=== PATIENT | male | born 1975 | race Two or more races ===

== ENCOUNTER 2020-06-05 07:54 | Inpatient (IN) | payer OTHER ==
[~2020-06-05] VITALS: Ht 175.3 cm; Wt 77.6 kg
[2020-06-05] MEDS ORDERED: Octreotide Acetate 500 MCG in Sodium Chloride 499 ML IV SCH (08:15)
[2020-06-05] MEDS ORDERED: Pantoprazole Inj IV ONE (08:15)
--- NOTE | 2020-06-05 08:18 | Emergency Room Report ---
History of Present Illness General Chief Complaint: Abdominal Pain Source: Patient Present Illness HPI 44-year-old male with history of alcohol liver cirrhosis here with hematemesis and syncope. Patient says that this has happened to him before most recently about 10 days ago. He was admitted to [facility] where he had an endoscopy that showed that the patient's prior varices that he had approximately 14 years ago are no longer present. He was discharged 7 days ago. Says that over the past 24 hours he has vomited multiple times bright red blood. Also thinks that he is having hemoptysis. Said he had a syncopal episode last night. Denies head trauma. No fevers, chills, vision changes, focal numbness or weakness, slurred speech, chest pain, palpitation or shortness of breath, back pain, abdominal pain, diarrhea, dysuria. 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 COVID-19 Screening: Negative COVID-19 COVID-19 Testing Source: nasal Nursing Documentation-[facility] Past Medical History: No History, Except For Review of Systems All Other Systems: negative except mentioned in HPI Physical Exam Vital Signs Date Time Temp Pulse Resp B/P (MAP) Pulse Ox O2 Delivery O2 Flow Rate FiO2 06/05/20 07:57 97.7 117 20 135/82 (99) 98 Room Air Sp02 EP Interpretation: reviewed, normal General Appearance: no apparent distress, alert, non-toxic Head: normocephalic, atraumatic Eyes: bilateral eye normal inspection, bilateral eye PERRL ENT: hearing grossly normal, normal pharynx, no angioedema, normal voice Neck: full range of motion, supple/symm/no masses Respiratory: chest non-tender, lungs clear, normal breath sounds, speaking full sentences Cardiovascular #1: regular rate, rhythm, no edema Cardiovascular #2: 2+ carotid (R), 2+ carotid (L), 2+ radial (R), 2+ radial (L), 2+ dorsalis pedis (R), 2+ dorsalis pedis (L) Gastrointestinal: normal bowel sounds, non tender, soft, non-distended, no guarding, no rebound Rectal: deferred Genitourinary: normal inspection, no CVA tenderness Musculoskeletal: back normal, normal range of motion, gait/station normal, non- tender Neurologic: alert, motor strength/tone normal, oriented x3, sensory intact, responsive, speech normal Psychiatric: judgement/insight normal, memory normal, mood/affect normal, no suicidal/homicidal ideation Lymphatic: no adenopathy Medical Decision Making Diagnostic Impression: Primary Impression: GI bleed Additional Impressions: Syncope Abdominal pain ER Course EKG: NSR, no ischemia, intervals WNL. No ectopy Rhythm strip: patient monitored for arrhythmias - no malignant dysrhythmias, runs of PVCs, nor pauses noted Chest x-ray: No infiltrate/effusion. Mediastinum within normal limits. No consolidations. No free air under the diaphragm. No bony abnormalities Laboratory Tests Test 06/05/20 08:35 06/05/20 08:53 White Blood Count 9.0 K/UL (4.8-10.8) Red Blood Count 5.01 M/UL (4.70-6.10) Hemoglobin 16.6 G/DL (14.2-18.0) Hematocrit 48.1 % (42.0-52.0) Mean Corpuscular Volume 96 FL (80-99) Mean Corpuscular Hemoglobin 33.2 PG (27.0-31.0) H Mean Corpuscular Hemoglobin Concent 34.6 G/DL (32.0-36.0) Red Cell Distribution Width 13.8 % (11.6-14.8) Platelet Count 234 K/UL (150-450) Mean Platelet Volume 5.9 FL (6.5-10.1) L Neutrophils (%) (Auto) 68.1 % (45.0-75.0) Lymphocytes (%) (Auto) 20.6 % (20.0-45.0) Monocytes (%) (Auto) 8.8 % (1.0-10.0) Eosinophils (%) (Auto) 0.9 % (0.0-3.0) Basophils (%) (Auto) 1.6 % (0.0-2.0) Prothrombin Time 10.4 SEC (9.30-11.50) Prothrombin Time INR 0.9 (0.9-1.1) Activated Partial Thromboplast Time 25 SEC (23-33) Sodium Level 143 MMOL/L (136-145) Potassium Level 3.6 MMOL/L (3.5-5.1) Chloride Level 104 MMOL/L (98-107) Carbon Dioxide Level 22 MMOL/L (21-32) Anion Gap 17 mmol/L (5-15) H Blood Urea Nitrogen 13 mg/dL (7-18) Creatinine 0.8 MG/DL (0.55-1.30) Estimated Glomerular Filtration Rate > 60 mL/min (>60) Glucose Level 86 MG/DL (74-106) Calcium Level 8.6 MG/DL (8.5-10.1) Total Bilirubin 0.8 MG/DL (0.2-1.0) Aspartate Amino Transferase (AST) 57 U/L (15-37) H Alanine Aminotransferase (ALT) 27 U/L (12-78) Alkaline Phosphatase 94 U/L (46-116) Troponin I 0.002 ng/mL (0.000-0.056) Total Protein 8.0 G/DL (6.4-8.2) Albumin 4.1 G/DL (3.4-5.0) Globulin 3.9 g/dL Albumin/Globulin Ratio 1.1 (1.0-2.7) Lipase 444 U/L (73-393) H Urine Color Yellow Urine Appearance Clear Urine pH 5 (4.5-8.0) Urine Specific [place] 1.025 (1.005-1.035) Urine Protein 3+ (NEGATIVE) H Urine Glucose (UA) Negative (NEGATIVE) Urine Ketones 3+ (NEGATIVE) H Urine Blood 3+ (NEGATIVE) H Urine Nitrite Negative (NEGATIVE) Urine Bilirubin Negative (NEGATIVE) Urine Urobilinogen Normal MG/DL (0.0-1.0) Urine Leukocyte Esterase 1+ (NEGATIVE) H Urine RBC 0-2 /HPF (0 - 0) H Urine WBC 0-2 /HPF (0 - 0) Urine Squamous Epithelial Cells Occasional /LPF Urine Bacteria Occasional /HPF (NONE) Urine Mucus Moderate /LPF (NONE/OCC) H 44-year-old male with a history of alcoholic liver cirrhosis, remote history of esophageal varices status post banding 15 years ago, stomach ulcers here with hematemesis and syncope. Patient was hemodynamically stable in the emergency department and in no acute distress. He was mildly tachycardic on arrival but this resolved after IV fluids. CBC and CMP were largely unremarkable. He had a normal hemoglobin. Urinalysis negative. EKG normal. Chest x-ray normal. Patient was given Protonix, fluids, Rocephin in the emergency department. Patient said that he had an endoscopy performed approximately 1 week ago that showed that his varices have resolved. No indication for octreotide at this time. Patient to be admitted to telemetry. Last Vital Signs Date Time Temp Pulse Resp B/P (MAP) Pulse Ox O2 Delivery O2 Flow Rate FiO2 06/05/20 07:57 97.7 117 20 135/82 (99) 98 Room Air Cruzito Pierre M.D. Jun 05, 2020 08:18
--- NOTE | 2020-06-05 08:25 | NUR ---
ED Nurse Note: patient states he came from work at [employer] when he vomitted blood, had abdominal pain and passed out. c/o vomiting blood and epigastric pain, he had syncopal episode yesterday. nad noted on arrival, vss, complaints of 4/10 pain on mid abdomen stabbing pain. vss. a/ox4, ambulatory with steady gait. on room air, respirations even and unlabored.
--- NOTE | 2020-06-05 08:29 | NUR ---
ED Nurse Note: xray at bedside.
--- NOTE | 2020-06-05 08:48 | NUR ---
ED Nurse Note: iv started on left hand 20 gauge, blood collected and sent to lab Addendum: 06/05/20 at 0904 by TAMICA iv right hand 20 gauge
[2020-06-05] MEDS ORDERED: ZYPREXA5 MG ORAL (08:49)
[2020-06-05] MEDS ORDERED: SERTRALINE HCL100 MG PO (08:49)
[2020-06-05] MEDS ORDERED: QUETIAPINE FUM200 MG ORAL (08:49)
[2020-06-05 09:01] VITALS: BP 135/82
[2020-06-05 09:10] LABS: APPEARANCE,URINE CLEAR; BILIRUBIN, URINE NEGATIVE (NEGATIVE); GLUCOSE, URINE (UA) NEGATIVE (NEGATIVE); KETONES,URINE 3+ (NEGATIVE); LEUKOCYTE ESTERASE ,URINE 1+ (NEGATIVE); NITRITE,URINE NEGATIVE (NEGATIVE); PH,URINE 5 (4.5-8.0); PROTEIN,URINE 3+ (NEGATIVE); UROBILINOGEN,URINE NORMAL MG/DL (0.0-1.0)
[2020-06-05 09:11] LABS: BASOPHILS % (AUTO) 1.6 % (0.0-2.0); EOSINOPHILS % (AUTO) 0.9 % (0.0-3.0); HEMATOCRIT 48.1 % (42.0-52.0); HEMOGLOBIN 16.6 G/DL (14.2-18.0); LYMPHOCYTES % (AUTO) 20.6 % (20.0-45.0); MEAN CORPUSCULAR VOLUME 96 FL (80-99); MONOCYTES % (AUTO) 8.8 % (1.0-10.0); NEUTROPHILS % (AUTO) 68.1 % (45.0-75.0); PLATELET COUNT 234 K/UL (150-450); RED BLOOD COUNT 5.01 M/UL (4.70-6.10); RED CELL DISTRIBUTION WIDTH 13.8 % (11.6-14.8)
[2020-06-05 09:19] LABS: ANION GAP 17 mmol/L (5-15); BLOOD UREA NITROGEN 13 mg/dL (7-18); CALCIUM 8.6 MG/DL (8.5-10.1); CARBON DIOXIDE 22 MMOL/L (21-32); CHLORIDE 104 MMOL/L (98-107); CREATININE 0.8 MG/DL (0.55-1.30); POTASSIUM 3.6 MMOL/L (3.5-5.1); SODIUM 143 MMOL/L (136-145)
[2020-06-05 09:21] LABS: INR 0.9 (0.9-1.1)
[2020-06-05 09:23] LABS: ALANINE AMINOTRANSFERASE 27 U/L (12-78); ALBUMIN 4.1 G/DL (3.4-5.0); ALBUMIN/GLOBULIN RATIO 1.1 (1.0-2.7); ALKALINE PHOSPHATASE 94 U/L (46-116); ASPARTATE AMINO TRANSFERASE 57 U/L (15-37); BILIRUBIN,TOTAL 0.8 MG/DL (0.2-1.0)
[2020-06-05 09:25] LABS: COLOR,URINE YELLOW
[2020-06-05 09:46] VITALS: BP 118/71
[2020-06-05] MEDS ORDERED: Morphine Sulfate 4mg/ml Inj (IV USE ONLY) IVP ONE ×3 (10:00→17:00)
[2020-06-05] MEDS ORDERED: cefTRIAXone 1 GM in NS 55 ML IVPB ONE (10:45)
--- NOTE | 2020-06-05 12:01 | General Progress Note ---
Subjective ROS Limited/Unobtainable: Yes Allergies: Coded Allergies: IODINE (Verified Allergy, Unknown, 06/05/20) Objective Last 24 Hour Vital Signs Date Time Temp Pulse Resp B/P (MAP) Pulse Ox O2 Delivery O2 Flow Rate FiO2 06/05/20 10:41 97.7 06/05/20 09:46 97.7 108 20 118/71 98 Room Air 06/05/20 09:01 97.7 77 20 135/82 98 Room Air 06/05/20 09:01 117 20 Room Air 06/05/20 07:57 97.7 117 20 135/82 (99) 98 Room Air Laboratory Tests 06/05/20 08:35: White Blood Count 9.0, Red Blood Count 5.01, Hemoglobin 16.6, Hematocrit 48.1, Mean Corpuscular Volume 96, Mean Corpuscular Hemoglobin 33.2H, Mean Corpuscular Hemoglobin Concent 34.6, Red Cell Distribution Width 13.8, Platelet Count 234, Mean Platelet Volume 5.9L, Neutrophils (%) (Auto) 68.1, Lymphocytes (%) (Auto) 20.6, Monocytes (%) (Auto) 8.8, Eosinophils (%) (Auto) 0.9, Basophils (%) (Auto) 1.6, Prothrombin Time 10.4, Prothromb Time International Ratio 0.9, Activated Partial Thromboplast Time 25, Sodium Level 143, Potassium Level 3.6, Chloride Level 104, Carbon Dioxide Level 22, Anion Gap 17H, Blood Urea Nitrogen 13, Creatinine 0.8, Estimat Glomerular Filtration Rate > 60, Glucose Level 86, Calcium Level 8.6, Total Bilirubin 0.8, Aspartate Amino Transf (AST/SGOT) 57H, Alanine Aminotransferase (ALT/SGPT) 27, Alkaline Phosphatase 94, Troponin I 0.002, Total Protein 8.0, Albumin 4.1, Globulin 3.9, Albumin/Globulin Ratio 1.1, Lipase 444H 06/05/20 08:53: Urine Color Yellow, Urine Appearance Clear, Urine pH 5, Urine Specific [place] 1.025, Urine Protein 3+H, Urine Glucose (UA) Negative, Urine Ketones 3+H, Urine Blood 3+H, Urine Nitrite Negative, Urine Bilirubin Negative, Urine Urobilinogen Normal, Urine Leukocyte Esterase 1+H, Urine RBC 0-2H, Urine WBC 0-2, Urine Squamous Epithelial Cells Occasional, Urine Bacteria Occasional, Urine Mucus ModerateH Height (Feet): 5 Height (Inches): 11.00 Weight (Pounds): 172 General Appearance: no apparent distress EENT: normal ENT inspection Neck: supple Cardiovascular: normal rate Respiratory/Chest: decreased breath sounds Abdomen: normal bowel sounds, non tender, soft Extremities: non-tender Assessment/Plan Assessment/Plan: h/o cirrhosis ? GIB abd us ppi hepatitis panel repeat labs including amylase and lipase will fu Fabiano Holley MD Jun 05, 2020 12:01
[2020-06-05 12:03] VITALS: BP 122/76
--- NOTE | 2020-06-05 12:06 | NUR ---
ED Nurse Note: Water provided to patient. Dr Ignacio hale for patient to eat or drink at this time.
--- NOTE | 2020-06-05 14:24 | Diagnostic Imaging Report ---
Indication: Reason For Exam: COUGH Technique: Single AP view of the chest. Comparison: None. Findings: The cardiomediastinal silhouette is within normal limits. There is no focal consolidation, pneumothorax or pleural effusion. Osseous structures demonstrate no acute abnormality. IMPRESSION: No radiographic evidence of acute cardiopulmonary disease.
--- NOTE | 2020-06-05 14:36 | Cardiac Electrophysiology PN ---
Subjective Subjective [id number] Objective Last 24 Hour Vital Signs Date Time Temp Pulse Resp B/P (MAP) Pulse Ox O2 Delivery O2 Flow Rate FiO2 06/05/20 12:57 98.0 06/05/20 12:03 98.0 85 16 122/76 99 Room Air 06/05/20 10:41 97.7 06/05/20 09:46 97.7 108 20 118/71 98 Room Air 06/05/20 09:01 97.7 77 20 135/82 98 Room Air 06/05/20 09:01 117 20 Room Air 06/05/20 07:57 97.7 117 20 135/82 (99) 98 Room Air Laboratory Tests Test 06/05/20 08:35 06/05/20 08:53 White Blood Count 9.0 K/UL (4.8-10.8) Red Blood Count 5.01 M/UL (4.70-6.10) Hemoglobin 16.6 G/DL (14.2-18.0) Hematocrit 48.1 % (42.0-52.0) Mean Corpuscular Volume 96 FL (80-99) Mean Corpuscular Hemoglobin 33.2 PG (27.0-31.0) H Mean Corpuscular Hemoglobin Concent 34.6 G/DL (32.0-36.0) Red Cell Distribution Width 13.8 % (11.6-14.8) Platelet Count 234 K/UL (150-450) Mean Platelet Volume 5.9 FL (6.5-10.1) L Neutrophils (%) (Auto) 68.1 % (45.0-75.0) Lymphocytes (%) (Auto) 20.6 % (20.0-45.0) Monocytes (%) (Auto) 8.8 % (1.0-10.0) Eosinophils (%) (Auto) 0.9 % (0.0-3.0) Basophils (%) (Auto) 1.6 % (0.0-2.0) Prothrombin Time 10.4 SEC (9.30-11.50) Prothromb Time International Ratio 0.9 (0.9-1.1) Activated Partial Thromboplast Time 25 SEC (23-33) Sodium Level 143 MMOL/L (136-145) Potassium Level 3.6 MMOL/L (3.5-5.1) Chloride Level 104 MMOL/L (98-107) Carbon Dioxide Level 22 MMOL/L (21-32) Anion Gap 17 mmol/L (5-15) H Blood Urea Nitrogen 13 mg/dL (7-18) Creatinine 0.8 MG/DL (0.55-1.30) Estimat Glomerular Filtration Rate > 60 mL/min (>60) Glucose Level 86 MG/DL (74-106) Calcium Level 8.6 MG/DL (8.5-10.1) Total Bilirubin 0.8 MG/DL (0.2-1.0) Aspartate Amino Transf (AST/SGOT) 57 U/L (15-37) H Alanine Aminotransferase (ALT/SGPT) 27 U/L (12-78) Alkaline Phosphatase 94 U/L (46-116) Troponin I 0.002 ng/mL (0.000-0.056) Total Protein 8.0 G/DL (6.4-8.2) Albumin 4.1 G/DL (3.4-5.0) Globulin 3.9 g/dL Albumin/Globulin Ratio 1.1 (1.0-2.7) Lipase 444 U/L (73-393) H Urine Color Yellow Urine Appearance Clear Urine pH 5 (4.5-8.0) Urine Specific [place] 1.025 (1.005-1.035) Urine Protein 3+ (NEGATIVE) H Urine Glucose (UA) Negative (NEGATIVE) Urine Ketones 3+ (NEGATIVE) H Urine Blood 3+ (NEGATIVE) H Urine Nitrite Negative (NEGATIVE) Urine Bilirubin Negative (NEGATIVE) Urine Urobilinogen Normal MG/DL (0.0-1.0) Urine Leukocyte Esterase 1+ (NEGATIVE) H Urine RBC 0-2 /HPF (0 - 0) H Urine WBC 0-2 /HPF (0 - 0) Urine Squamous Epithelial Cells Occasional /LPF Urine Bacteria Occasional /HPF (NONE) Urine Mucus Moderate /LPF (NONE/OCC) H Carlos Duncan MD Jun 05, 2020 14:36
[2020-06-05 16:13] VITALS: BP 128/77
--- NOTE | 2020-06-05 16:33 | Diagnostic Imaging Report ---
ABDOMINAL ULTRASOUND - COMPLETE INDICATION: Abdominal pain. TECHNIQUE: Multiplanar ultrasound examination of the abdomen with greyscale and doppler imaging. COMPARISON: None FINDINGS: Liver: The liver is normal in size and demonstrates coarsened echotexture. No focal abnormalities are noted. Gallbladder: Surgically absent. Common bile duct: Common bile duct is dilated, measuring up to 9 mm. Pancreas: Incompletely imaged due to overlying bowel gas. There is a prominent pancreatic duct, measuring up to 3 mm. Kidneys: The kidneys are normal in size and echogenicity. There is no hydronephrosis. Spleen: The spleen is normal in size and echogenicity. Aorta: The aorta is normal in caliber. IMPRESSION: Dilated common bile duct, which in combination with prominent pancreatic duct, raises possibility of distal obstructive process such as choledocholithiasis or pancreatic head mass. Recommend correlation with LFTs and consider further evaluation with CT with contrast as clinically indicated.
--- NOTE | 2020-06-05 16:45 | NUR ---
ED Nurse Note: Dr Bruce was notified of lactic acid of 6.4
--- NOTE | 2020-06-05 18:05 | Consultation ---
DATE OF CONSULTATION: 06/05/2020 CARDIOLOGY CONSULTATION REASON FOR CONSULTATION: Syncope. HISTORY OF PRESENT ILLNESS: The patient is a 44-year-old alcoholic with history of cirrhosis, who presented to the emergency room with syncopal episodes. The patient also had hematemesis and was admitted to [facility] and had an endoscopy that showed the patient's prior varices were no longer present and was discharged a week ago. The patient has vomited multiple times with bright red blood. The patient states the last time he drank alcohol was 12 hours ago. He had a syncopal episode without any head trauma. Denies any chest pain or palpitation or shortness of breath. The blood pressure in the emergency room was 135/82 with a pulse of 117. Cardiology consultation was obtained for further evaluation. REVIEW OF SYSTEMS: Negative other than what is mentioned in history of present illness. PAST MEDICAL HISTORY: As mentioned above. FAMILY HISTORY: Noncontributory. SOCIAL HISTORY: He is a heavy alcoholic and does not use any drugs. PHYSICAL EXAMINATION: VITAL SIGNS: Blood pressure 122/76, pulse 110, respirations 18. He is afebrile. HEAD AND NECK: No JVD. LUNGS: Clear. CARDIOVASCULAR: Regular S1 and S2 and tachycardic. ABDOMEN: Soft. EXTREMITIES: No pitting edema. LABORATORY DATA: White count 9, hemoglobin of 16, hematocrit of 48, and platelet count is 234. Sodium 142, potassium 3.2, BUN of 13, creatinine 0.8, and glucose of 86. ASSESSMENT/PLAN: 1. Syncope, likely due to cirrhosis and GI bleed, could be vagal. First troponin is negative. Repeat cardiac enzymes. Get EKG and echocardiogram for further evaluation. 2. Upper GI bleed due to esophageal varices in view of the patient with cirrhosis of the liver. Hemoglobin is 16. Further evaluation by Dr. Holley. 3. Heavy alcohol use. Thank you very much for allowing me to participate in the care of this patient. Please do not hesitate to contact me for any questions regarding my evaluation. The case was discussed with the emergency room physician. Carlos Duncan M.D. DR: SHAWN JOB#: [id number] CC:
--- NOTE | 2020-06-05 18:20 | NUR ---
ED Nurse Note: Repeat lactic acid sent to lab.
[2020-06-05 19:03] VITALS: BP 109/58
--- NOTE | 2020-06-05 19:09 | NUR ---
HAND-OFF: Report given to minda aguilar.
[2020-06-05 19:10] VITALS: BP 112/64
--- NOTE | 2020-06-05 19:10 | NUR ---
ED Nurse Note: pt laying in bed with eyes open, pt is AAOx4, breathing even and unlabored. No complaints from pt at the moment. Vital signs are stable.
--- NOTE | 2020-06-05 20:01 | NUR ---
ED Nurse Note: Floor RN unable to take report.
--- NOTE | 2020-06-05 20:43 | NUR ---
ED Nurse Note: Report given to DARLENE Camacho in tele.
--- NOTE | 2020-06-05 20:50 | NUR ---
TRANSFER TO FLOOR: Patient transferred to tele via [facility] accompanied by EMT and staff submarine warfare officer. Per EDMD ok to transfer. Pt is AA0x4, with stable vital signs. Report given to DARLENE Camacho. Belongings and admission packet given to tele staff.
--- NOTE | 2020-06-05 21:18 | NUR ---
NURSE NOTES: Received report from DARLENE Oro. Pt is A/O x4 and verbally responsive. Pt is ambulatory and continent or both bowel and bladder. Pain noted in the ABD at 4/10. Pt coming to tele from Er with syncope episode and GI bleed. Educated pt to let me know if anything changes and he has any hematemesis like earlier in the day. Bed in lowest position with side rails x2 and locked. Paged Dr. Thakur for admitting orders awaiting call back.
[2020-06-06] VITALS: BP 113/70
--- NOTE | 2020-06-06 | NUR ---
NURSE NOTES: Was told by Dr. Thakur to contact Dr. Holley for orders for pain medication for pain of 6/10 in his ABD. Contacted Dr. Holley and awaiting response.
--- NOTE | 2020-06-06 00:36 | NUR ---
NURSE NOTES: Received admit orders from Dr. Thakur which were carried out.
--- NOTE | 2020-06-06 01:34 | NUR ---
NURSE NOTES: Contacted Dr. Holley's voicemail service a second time for pt pain level of 8/10 on his lower left ABD. Charge nurse also aware.
--- NOTE | 2020-06-06 01:52 | NUR ---
NURSE NOTES: Contacted Dr. Thakur regarding pain medication for pt because pain has gone up from 12/03 to 02/[address] Holley has not answered back. Also notified charge nurse.
[2020-06-06 04:00] VITALS: BP 124/75
--- NOTE | 2020-06-06 04:16 | NUR ---
NURSE NOTES: Again tried to contact Dr. Thakur for pain medications for the pt. Pt pain is 9/10 on lower ABD. Charge nurse notified.
[2020-06-06 06:59] LABS: BASOPHILS % (AUTO) 1.5 % (0.0-2.0); EOSINOPHILS % (AUTO) 2.2 % (0.0-3.0); HEMATOCRIT 40.5 % (42.0-52.0); HEMOGLOBIN 14.1 G/DL (14.2-18.0); LYMPHOCYTES % (AUTO) 11.3 % (20.0-45.0); MEAN CORPUSCULAR VOLUME 98 FL (80-99); MONOCYTES % (AUTO) 9.6 % (1.0-10.0); NEUTROPHILS % (AUTO) 75.5 % (45.0-75.0); PLATELET COUNT 184 K/UL (150-450); RED BLOOD COUNT 4.15 M/UL (4.70-6.10); RED CELL DISTRIBUTION WIDTH 13.8 % (11.6-14.8); WHITE BLOOD COUNT 8.4 K/UL (4.8-10.8)
[2020-06-06 07:14] LABS: INR 0.9 (0.9-1.1)
[2020-06-06 07:23] LABS: ALANINE AMINOTRANSFERASE 52 U/L (12-78); ALBUMIN 3.3 G/DL (3.4-5.0); ALKALINE PHOSPHATASE 97 U/L (46-116); ANION GAP 13 mmol/L (5-15); ASPARTATE AMINO TRANSFERASE 232 U/L (15-37); BILIRUBIN,TOTAL 1.6 MG/DL (0.2-1.0); BLOOD UREA NITROGEN 7 mg/dL (7-18); CALCIUM 7.8 MG/DL (8.5-10.1); CARBON DIOXIDE 24 MMOL/L (21-32); CHLORIDE 100 MMOL/L (98-107); CREATININE 0.9 MG/DL (0.55-1.30); POTASSIUM 4.1 MMOL/L (3.5-5.1); SODIUM 137 MMOL/L (136-145)
[2020-06-06 07:26] LABS: AMYLASE 86 U/L (25-115)
[2020-06-06 07:27] LABS: BILIRUBIN,DIRECT 0.4 MG/DL (0.0-0.3)
--- NOTE | 2020-06-06 07:55 | NUR ---
NURSE NOTES: Pt. received from DARLENE Camacho. Pt. AAOx4, on room air, breathing even and unlabored, no indication of respiratory distress, active complaints of epigastric pain, 10/10, N/V moderate amount. Endorsed MD was called requesting pain medication, no orders received, will follow up. Bed low and locked, side rails x2 up, and call light in reach.
--- NOTE | 2020-06-06 07:58 | NUR ---
NURSE HAND-OFF REPORT: Important Events on Shift: New Admit with ABD pain and syncope episode Patient Status: Stable Diet: NPO Pending Orders: Pending Results/Labs: Pending MD notification: Latest Vital Signs: Temperature 98.2 , Pulse 87 , B/P 124 /75 , Respiratory Rate 20 , O2 SAT 97 , Room Air, O2 Flow Rate . Vital Sign Comment: EKG Rhythm: Sinus Rhythm Rhythm change?: N MD Notified?: - MD Response: Latest Tompkins Fall Score: 45 Fall Risk: High Risk Safety Measures: Call light Within Reach, Bed Alarm Zone 2, Side Rails Side Rails x2, Bed position . Fall Precautions: Report given to
[2020-06-06 08:00] VITALS: BP 129/77
--- NOTE | 2020-06-06 08:57 | General Progress Note ---
Subjective ROS Limited/Unobtainable: Yes Allergies: Coded Allergies: IODINE (Verified Allergy, Unknown, 06/05/20) Objective Last 24 Hour Vital Signs Date Time Temp Pulse Resp B/P (MAP) Pulse Ox O2 Delivery O2 Flow Rate FiO2 06/06/20 04:00 87 06/06/20 04:00 98.2 84 20 124/75 (91) 97 06/06/20 00:00 99.0 73 20 113/70 (84) 97 06/05/20 21:17 Room Air 06/05/20 21:10 79 06/05/20 20:50 98.8 79 18 116/61 100 Room Air 06/05/20 19:10 98.0 75 16 112/64 99 Room Air 06/05/20 19:03 98.0 72 16 109/58 99 Room Air 06/05/20 17:30 98.0 06/05/20 16:13 98.0 84 16 128/77 99 Room Air 06/05/20 12:57 98.0 06/05/20 12:03 98.0 85 16 122/76 99 Room Air 06/05/20 10:41 97.7 06/05/20 09:46 97.7 108 20 118/71 98 Room Air 06/05/20 09:01 97.7 77 20 135/82 98 Room Air 06/05/20 09:01 117 20 Room Air Intake and Output0 06/05/20 06/06/20 19:00 07:00 Intake Total 1055 ml Output Total 100 ml Balance 1055 ml -100 ml Intake Oral 0 ml IV Total 1055 ml Output Emesis 100 ml # Voids 1 2 Laboratory Tests 06/05/20 15:30: Lactic Acid Level 6.40H 06/05/20 15:50: Ammonia 47H 06/05/20 18:12: Lactic Acid Level 6.00H 06/06/20 05:45: White Blood Count 8.4, Red Blood Count 4.15L, Hemoglobin 14.1L, Hematocrit 40.5L , Mean Corpuscular Volume 98, Mean Corpuscular Hemoglobin 34.0H, Mean Corpuscular Hemoglobin Concent 34.9, Red Cell Distribution Width 13.8, Platelet Count 184, Mean Platelet Volume 6.3L, Neutrophils (%) (Auto) 75.5H, Lymphocytes (%) (Auto) 11.3L, Monocytes (%) (Auto) 9.6, Eosinophils (%) (Auto) 2.2, Basophils (%) (Auto) 1.5, Prothrombin Time 10.0, Prothromb Time International Ratio 0.9, Activated Partial Thromboplast Time 26, Sodium Level 137, Potassium Level 4.1, Chloride Level 100, Carbon Dioxide Level 24, Anion Gap 13, Blood Urea Nitrogen 7, Creatinine 0.9, Estimat Glomerular Filtration Rate > 60, Glucose Level 78, Calcium Level 7.8L, Total Bilirubin 1.6H, Direct Bilirubin 0.4H, Aspartate Amino Transf (AST/SGOT) 232H, Alanine Aminotransferase (ALT/SGPT) 52, Alkaline Phosphatase 97, Troponin I 0.009, Total Protein 6.6, Albumin 3.3L, Globulin 3.3, Albumin/Globulin Ratio 1.0, Amylase Level 86, Lipase 358, Hepatitis A IgM Antibody [Pending], Hepatitis B Surface Antigen [Pending], Hepatitis B Core IgM Antibody [Pending], Hepatitis C Antibody [Pending] Height (Feet): 5 Height (Inches): 9.00 Weight (Pounds): 171 General Appearance: no apparent distress EENT: normal ENT inspection Neck: supple Cardiovascular: normal rate Respiratory/Chest: decreased breath sounds Abdomen: normal bowel sounds, non tender, soft Extremities: non-tender Assessment/Plan Assessment/Plan: h/o cirrhosis ? GIB abd us ppi hepatitis panel repeat labs including amylase and lipase will fu pain control start Fabiano Torres MD Jun 06, 2020 08:57
[2020-06-06] MEDS: Morphine Sulfate 2mg/ml Inj(IV/IM USE ONLY) IVP PRN ×3 (09:09→17:19)
--- NOTE | 2020-06-06 10:31 | NUR ---
NURSE NOTES: Message left for Dr. Montilla regarding consult for pain. Pt. still experiencing 10/10 epigastric pain, non radiating, with tears, tensing, and N/V.
[2020-06-06 12:00] VITALS: BP 119/76
--- NOTE | 2020-06-06 12:28 | NUR ---
NURSE NOTES: Message left for Jr Pylealexxrolando regarding pain consult from Dr. Thakur. Awaiting return call and orders.
--- NOTE | 2020-06-06 14:50 | NUR ---
CASE MANAGEMENT:REVIEW PRESENTED TO ER CC; VOMITING BLOOD . EPIGASTRIC PAIN. SYNCOPAL EPISODE SI: GIB. SYNCOPE 97.7 117 20 135/82 98% ON RA H/H 16.6/48.1 LIPASE+444 IS: IV ZOFRAN IV PROTONIX IV ROCEPHIN IV MORPHINE 1L NS BOLUS IV FLAGYL OCTREOTIDE GTT : TO TELEMETRY DCP:
--- NOTE | 2020-06-06 15:24 | NUR ---
NURSE NOTES: Discussed pt.'s complaints of pain, epigastric, unrelieved from current pain interventions. No new orders received and instructed to follow up with Dr. Montilla consult.
[2020-06-06] MEDS ORDERED: 1/2 NS 1000ml IV ONE (15:34)
--- NOTE | 2020-06-06 15:38 | Cardiac Electrophysiology PN ---
Assessment/Plan Assessment/Plan 1. Syncope, likely due to cirrhosis and GI bleed, could be vagal. Ruled out for KS and Echocardiogram showed EF 65% 2. Upper GI bleed due to esophageal varices in view of the patient with cirrhosis of the liver. Hemoglobin is 16 dropped to 14. Further evaluation by Dr. Holley. 3. Heavy alcohol use. Subjective Subjective Vomited blood again today. Say has hX of esophageal varices with banding in 2005 Objective Last 24 Hour Vital Signs Date Time Temp Pulse Resp B/P (MAP) Pulse Ox O2 Delivery O2 Flow Rate FiO2 06/06/20 12:00 68 06/06/20 12:00 98.8 68 18 119/76 (90) 96 06/06/20 09:00 Room Air 06/06/20 08:00 98.8 85 22 129/77 (94) 98 06/06/20 08:00 85 06/06/20 04:00 87 06/06/20 04:00 98.2 84 20 124/75 (91) 97 06/06/20 00:00 99.0 73 20 113/70 (84) 97 06/05/20 21:17 Room Air 06/05/20 21:10 79 06/05/20 20:50 98.8 79 18 116/61 100 Room Air 06/05/20 19:10 98.0 75 16 112/64 99 Room Air 06/05/20 19:03 98.0 72 16 109/58 99 Room Air 06/05/20 17:30 98.0 06/05/20 16:13 98.0 84 16 128/77 99 Room Air Intake and Output 06/05/20 06/06/20 19:00 07:00 Intake Total 1055 ml Output Total 100 ml Balance 1055 ml -100 ml Intake Oral 0 ml IV Total 1055 ml Output Emesis 100 ml # Voids 1 2 Laboratory Tests Test 06/05/20 15:50 06/05/20 18:12 06/06/20 05:45 Ammonia 47 umol/L (11-32) H Lactic Acid Level 6.00 mmol/L (0.66-2.22) H White Blood Count 8.4 K/UL (4.8-10.8) Red Blood Count 4.15 M/UL (4.70-6.10) L Hemoglobin 14.1 G/DL (14.2-18.0) L Hematocrit 40.5 % (42.0-52.0) L Mean Corpuscular Volume 98 FL (80-99) Mean Corpuscular Hemoglobin 34.0 PG (27.0-31.0) H Mean Corpuscular Hemoglobin Concent 34.9 G/DL (32.0-36.0) Red Cell Distribution Width 13.8 % (11.6-14.8) Platelet Count 184 K/UL (150-450) Mean Platelet Volume 6.3 FL (6.5-10.1) L Neutrophils (%) (Auto) 75.5 % (45.0-75.0) H Lymphocytes (%) (Auto) 11.3 % (20.0-45.0) L Monocytes (%) (Auto) 9.6 % (1.0-10.0) Eosinophils (%) (Auto) 2.2 % (0.0-3.0) Basophils (%) (Auto) 1.5 % (0.0-2.0) Prothrombin Time 10.0 SEC (9.30-11.50) Prothromb Time International Ratio 0.9 (0.9-1.1) Activated Partial Thromboplast Time 26 SEC (23-33) Sodium Level 137 MMOL/L (136-145) Potassium Level 4.1 MMOL/L (3.5-5.1) Chloride Level 100 MMOL/L (98-107) Carbon Dioxide Level 24 MMOL/L (21-32) Anion Gap 13 mmol/L (5-15) Blood Urea Nitrogen 7 mg/dL (7-18) Creatinine 0.9 MG/DL (0.55-1.30) Estimat Glomerular Filtration Rate > 60 mL/min (>60) Glucose Level 78 MG/DL (74-106) Calcium Level 7.8 MG/DL (8.5-10.1) L Total Bilirubin 1.6 MG/DL (0.2-1.0) H Direct Bilirubin 0.4 MG/DL (0.0-0.3) H Aspartate Amino Transf (AST/SGOT) 232 U/L (15-37) H Alanine Aminotransferase (ALT/SGPT) 52 U/L (12-78) Alkaline Phosphatase 97 U/L (46-116) Troponin I 0.009 ng/mL (0.000-0.056) Total Protein 6.6 G/DL (6.4-8.2) Albumin 3.3 G/DL (3.4-5.0) L Globulin 3.3 g/dL Albumin/Globulin Ratio 1.0 (1.0-2.7) Amylase Level 86 U/L (25-115) Lipase 358 U/L (73-393) Hepatitis A IgM Antibody Pending Hepatitis B Surface Antigen Pending Hepatitis B Core IgM Antibody Pending Hepatitis C Antibody Pending Objective HEAD AND NECK: No JVD. LUNGS: Clear. CARDIOVASCULAR: Regular S1 and S2 and tachycardic. ABDOMEN: Soft. EXTREMITIES: No pitting edema. Carlos Duncan MD Jun 06, 2020 15:38
[2020-06-06 16:00] VITALS: BP 124/76
--- NOTE | 2020-06-06 17:52 | Consultation ---
History of Present Illness General Date patient seen: Jun 06, 2020 Reason for Hospitalization: Abdominal Pain Present Illness HPI 44-year-old male with history of alcohol liver cirrhosis here with hematemesis and syncope. Patient says that this has happened to him before most recently about 10 days ago. He was admitted to [facility] where he had an endoscopy that showed that the patient's prior varices that he had approximately 14 years ago are no longer present. He was discharged 7 days ago. Says that over the past 24 hours he has vomited multiple times bright red blood. Also thinks that he is having hemoptysis. Said he had a syncopal episode last night. Denies head trauma. No fevers, chills, vision changes, focal numbness or weakness, slurred speech, chest pain, palpitation or shortness of breath, back pain, abdominal pain, diarrhea, dysuria. surgery called to evaluate for abd pain. Allergies: Coded Allergies: IODINE (Verified Allergy, Unknown, 06/05/20) COVID-19 Screening Contact w/high risk pt: No Experienced COVID-19 symptoms?: No Medication History Scheduled Olanzapine* (Zyprexa*), 5 MG ORAL DAILY, (Reported) Quetiapine Fumarate* (Seroquel*), 200 MG ORAL DAILY, (Reported) Sertraline Hcl* (Zoloft*), 100 MG PO DAILY, (Reported) Patient History History Provided By: Patient, Medical Record, PMD Healthcare decision maker Resuscitation status Advanced Directive on File Past Medical/Surgical History Past Medical/Surgical History: (1) Syncope (2) Abdominal pain (3) GI bleed Review of Systems Review of Symptoms General ROS: no weight loss or fever Psychological ROS: no depression or mood changes, no memory loss Ophthalmic ROS: no visual changes or eye irritation ENT ROS: no nasal congestion, hearing loss, dizziness Allergy and Immunology ROS: no allergic symptoms or urticaria Hematological and Lymphatic ROS: no swollen glands, unusual bleeding or bruising Endocrine ROS: no polyuria, polydipsia, weight changes, temperature intolerance Respiratory ROS: no cough, shortness of breath, or wheezing Cardiovascular ROS: no chest pain or dyspnea on exertion Gastrointestinal ROS: denies abdominal pain, bright red blood in stool. Musculoskeletal ROS: no myalgias or arthralgias Neurological ROS: no TIA or stroke symptoms Dermatological ROS: no new or changing skin lesions, rashes or pruritis Physical Exam Physical Exam General appearance: alert, cooperative, no distress, appears stated age Head: Normocephalic, without obvious abnormality, atraumatic Eyes: conjunctivae/corneas clear. PERRL, EOM's intact. Fundi benign Throat: Lips, mucosa, and tongue normal. Teeth and gums normal Neck: supple, symmetrical, trachea midline, no adenopathy, thyroid: not enlarged, symmetric, no tenderness/mass/nodules, no carotid bruit and no JVD Lungs: clear to auscultation bilaterally Heart: regular rate and rhythm, S1, S2 normal, no murmur, click, rub or gallop Abdomen: soft, non-tender. Bowel sounds normal. No masses, no organomegaly Extremities: extremities normal, atraumatic, no cyanosis or edema Pulses: 2+ and symmetric Skin: Skin color, texture, turgor normal. No rashes or lesions Neurologic: Grossly normal Last 24 Hour Vital Signs Date Time Temp Pulse Resp B/P (MAP) Pulse Ox O2 Delivery O2 Flow Rate FiO2 06/06/20 16:00 98.2 67 20 124/76 (92) 99 06/06/20 12:00 68 06/06/20 12:00 98.8 68 18 119/76 (90) 96 06/06/20 09:00 Room Air 06/06/20 08:00 98.8 85 22 129/77 (94) 98 06/06/20 08:00 85 06/06/20 04:00 87 06/06/20 04:00 98.2 84 20 124/75 (91) 97 06/06/20 00:00 99.0 73 20 113/70 (84) 97 06/05/20 21:17 Room Air 06/05/20 21:10 79 06/05/20 20:50 98.8 79 18 116/61 100 Room Air 06/05/20 19:10 98.0 75 16 112/64 99 Room Air 06/05/20 19:03 98.0 72 16 109/58 99 Room Air Intake and Output 06/05/20 06/06/20 19:00 07:00 Intake Total 1055 ml Output Total 100 ml Balance 1055 ml -100 ml Intake Oral 0 ml IV Total 1055 ml Output Emesis 100 ml # Voids 1 2 Laboratory Tests Test 06/05/20 18:12 06/06/20 05:45 Lactic Acid Level 6.00 mmol/L (0.66-2.22) H White Blood Count 8.4 K/UL (4.8-10.8) Red Blood Count 4.15 M/UL (4.70-6.10) L Hemoglobin 14.1 G/DL (14.2-18.0) L Hematocrit 40.5 % (42.0-52.0) L Mean Corpuscular Volume 98 FL (80-99) Mean Corpuscular Hemoglobin 34.0 PG (27.0-31.0) H Mean Corpuscular Hemoglobin Concent 34.9 G/DL (32.0-36.0) Red Cell Distribution Width 13.8 % (11.6-14.8) Platelet Count 184 K/UL (150-450) Mean Platelet Volume 6.3 FL (6.5-10.1) L Neutrophils (%) (Auto) 75.5 % (45.0-75.0) H Lymphocytes (%) (Auto) 11.3 % (20.0-45.0) L Monocytes (%) (Auto) 9.6 % (1.0-10.0) Eosinophils (%) (Auto) 2.2 % (0.0-3.0) Basophils (%) (Auto) 1.5 % (0.0-2.0) Prothrombin Time 10.0 SEC (9.30-11.50) Prothromb Time International Ratio 0.9 (0.9-1.1) Activated Partial Thromboplast Time 26 SEC (23-33) Sodium Level 137 MMOL/L (136-145) Potassium Level 4.1 MMOL/L (3.5-5.1) Chloride Level 100 MMOL/L (98-107) Carbon Dioxide Level 24 MMOL/L (21-32) Anion Gap 13 mmol/L (5-15) Blood Urea Nitrogen 7 mg/dL (7-18) Creatinine 0.9 MG/DL (0.55-1.30) Estimat Glomerular Filtration Rate > 60 mL/min (>60) Glucose Level 78 MG/DL (74-106) Calcium Level 7.8 MG/DL (8.5-10.1) L Total Bilirubin 1.6 MG/DL (0.2-1.0) H Direct Bilirubin 0.4 MG/DL (0.0-0.3) H Aspartate Amino Transf (AST/SGOT) 232 U/L (15-37) H Alanine Aminotransferase (ALT/SGPT) 52 U/L (12-78) Alkaline Phosphatase 97 U/L (46-116) Troponin I 0.009 ng/mL (0.000-0.056) Total Protein 6.6 G/DL (6.4-8.2) Albumin 3.3 G/DL (3.4-5.0) L Globulin 3.3 g/dL Albumin/Globulin Ratio 1.0 (1.0-2.7) Amylase Level 86 U/L (25-115) Lipase 358 U/L (73-393) Hepatitis A IgM Antibody Pending Hepatitis B Surface Antigen Pending Hepatitis B Core IgM Antibody Pending Hepatitis C Antibody Pending Height (Feet): 5 Height (Inches): 9.00 Weight (Pounds): 171 Medications Current Medications Medications (Trade) Dose Ordered Sig/Avi Route PRN Reason Start Time Stop Time Status Last Admin Dose Admin Barium Sulfate (Readi-Cat 2) 450 ml NOW PRN ORAL Radiology Procedure 06/06/20 09:00 06/08/20 08:59 Morphine Sulfate (Morphine Sulfate) 2 mg Q4H PRN IVP For Pain 06/06/20 09:00 06/13/20 08:59 06/06/20 17:19 Ondansetron HCl (Zofran) 4 mg Q6H PRN IVP Nausea & Vomiting 06/05/20 22:15 07/05/20 22:14 06/06/20 16:21 Pantoprazole (Protonix) 40 mg DAILY ORAL 06/06/20 09:00 07/06/20 08:59 Sodium Chloride 1,000 ml @ 55 mls/hr [id number] IV 06/05/20 22:15 07/05/20 22:14 06/06/20 16:22 Assessment/Plan Problem List: (1) Syncope ICD Codes: R55 - Syncope and collapse SNOMED: 976102368 (2) Abdominal pain Assessment & Plan: 44M acute pancreatitis hx of chronic pancreatitis with heavy etoh abuse states last drink a few days ago pain 10?10 and asking for morphine and Dilaudid by name no n/v/f/c tolerating diet labs improved no acute surgical intervention gi input appreciated will follow with recs thank you ICD Codes: R10.9 - Unspecified abdominal pain SNOMED: 18217375 (3) GI bleed ICD Codes: K92.2 - Gastrointestinal hemorrhage, unspecified SNOMED: 44693179 Vincenzo Jim Jun 06, 2020 17:52
--- NOTE | 2020-06-06 18:58 | NUR ---
NURSE NOTES: Orders received from PARMJIT Nicole, morphine to be d/c'd and dilauded added. Orders entered.
--- NOTE | 2020-06-06 19:17 | NUR ---
NURSE HAND-OFF REPORT: Important Events on Shift:[Pt. with dark bloody emesis, Dr. Holley, Dr. Duncan, and Dr. Thakur aware, new pain interventions ordered per Corey PARNELL Patient Status: []asleep Diet: []liquid diet Pending Orders: []na Pending Results/Labs:[]na Pending MD notification:[]notify MD Holley for hematemsis Latest Vital Signs: Temperature 98.2 , Pulse 73 , B/P 124 /76 , Respiratory Rate 20 , O2 SAT 99 , Room Air, O2 Flow Rate . Vital Sign Comment: []stable EKG Rhythm: Sinus Rhythm Rhythm change?: N MD Notified?: - MD Response: Latest Tompkins Fall Score: 45 Fall Risk: High Risk Safety Measures: Call light Within Reach, Bed Alarm Zone 2, Side Rails Side Rails x2, Bed position Low and Locked. Fall Precautions: Yellow Socks Patient Fall Education Report given to []DARLENE Acevedo
--- NOTE | 2020-06-06 19:30 | NUR ---
NURSE NOTES: Received report from DARLENE Greene, pt. in bed awake, A/O X's4- able to make needs known, no signs or symptoms of acute cardiac or respiratory distress noted, bed alarm on, side rails up x's 3 and safety brakes engaged, call light within easy reach, pt. aware to ask for assist, pt. appears to be sating well on room air- no distress noted, aspiration precautions observed, pt. has urinal at bedside and within easy reach, pt. appears clean and dry, Rt. hand 20G IV running 1/2 NS at 55cc/hr- IV intact and patent, safety measures continued, will continue to monitor pt. and with plan of care.
[2020-06-06 20:00] VITALS: BP 123/81
[2020-06-06] MEDS: Hydromorphone 0.5mg/0.5ml inj IVP PRN (20:03)
--- NOTE | 2020-06-06 20:35 | NUR ---
NURSE NOTES: pt. states he feels al ot better with Dilaudid pain medication- no abdominal pain at the moment- will continue to monitor pt. and with plan of care.
--- NOTE | 2020-06-06 22:43 | NUR ---
NURSE NOTES: DR. Guzman, calling for patient new orders- room number and patient name verified- orders given over the phone-orders re-verified and carried out.
[2020-06-06] MEDS ORDERED: LORazepam 1mg tab ORAL PRN (22:45)
--- NOTE | 2020-06-06 23:30 | History and Physical Report ---
DATE OF ADMISSION: 06/05/2020 HISTORY OF PRESENT ILLNESS: The patient comes in because of severe abdominal pain and syncope, hematemesis for 2 days. The patient has a history of heavy drinking. The patient basically also complains of mild headache. Denies constipation. He has history of cirrhosis as well. Denies shortness of breath. Denies coughing. PAST MEDICAL HISTORY: Significant for cirrhosis of the liver due to alcohol abuse. The patient also could have depression and psychosis as well. He has history of peptic ulcer disease. PAST SURGICAL HISTORY: Cholecystectomy, left ankle surgery, and status post esophageal banding. ALLERGIES: Iodine. MEDICATIONS: Zyprexa and Zoloft. SOCIAL HISTORY: He has history of smoking, history of drug abuse, and history of alcohol abuse. FAMILY HISTORY: Noncontributory. REVIEW OF SYSTEMS: He has mild symptoms of headache x1 day. Denies change in vision pattern.CHEST: Denies shortness of breath. Denies cough. CARDIOVASCULAR: Denies chest pain. Denies orthopnea. GASTROINTESTINAL: Reports hematemesis and abdominal pain for about 2 days. EXTREMITIES: Denies pain in lower extremities. NEUROLOGIC: Denies change in speech pattern. PHYSICAL EXAMINATION: VITAL SIGNS: Temperature is 98.8, pulse is 85, and blood pressure 139/77. HEENT: PERRLA. NECK: Supple. No lymphadenopathy. CHEST: Clear to auscultation. CARDIOVASCULAR: Regular rate and rhythm. No murmurs or extra sounds. GASTROINTESTINAL: Epigastric tenderness. He has no rebound. ABDOMEN: Soft. Positive bowel sounds. No organomegaly. EXTREMITIES: No edema. Moves all 4 extremities. NEUROLOGIC: Sensory intact to light touch. Reflexes in both sides. Moves all 4 extremities. LABORATORY DATA: WBC of 9, hemoglobin 16.6, platelets 234,000. Sodium 137, potassium 4.4, BUN of 7, creatinine 0.9, glucose of 78. AST of 232, ALT of 52, total bilirubin of 1.6. ASSESSMENT AND PLAN: Abdominal pain, syncope, hematemesis, cirrhosis of the liver due to alcohol basically, psychosis, and depression. I have consulted Dr. Guzman, Dr. Montilla, Dr. Shalom Hardy, Dr. Duncan, Dr. Brad Mayers, and Dr. Holley to help with the above-mentioned abnormalities, abnormal symptoms, abnormal findings, and abnormal laboratories and endoscopy is pending with Dr. Holley. Dr. Tsang has been consulted to help with prevention of DT as well as for depression and psychosis treatment. Dayne Thakur M.D. DR: LESIA JOB#: [id number] CC:
[2020-06-07] VITALS (7 sets, daily range): BP systolic 103–132; BP diastolic 62–95
[2020-06-07] MEDS: Hydromorphone 0.5mg/0.5ml inj IVP PRN ×4 (05:54→18:08)
[2020-06-07] MEDS ORDERED: chlordiazePOXIDE 5mg Cap ORAL SCH (06:00)
[2020-06-07] MEDS ORDERED: chlordiazePOXIDE 25mg Cap ONE (06:10)
[2020-06-07] MEDS: chlordiazePOXIDE 25mg Cap ORAL SCH ×3 (06:27→22:56)
--- NOTE | 2020-06-07 07:15 | NUR ---
NURSE HAND-OFF REPORT: Important Events on Shift:none Patient Status: stable Diet: liquid diet Pending Orders: Pending Results/Labs: Pending MD notification: Latest Vital Signs: Temperature 97.9 , Pulse 71 , B/P 124 /81 , Respiratory Rate 20 , O2 SAT 98 , Room Air, O2 Flow Rate . Vital Sign Comment: EKG Rhythm: Sinus Rhythm Rhythm change?: N MD Notified?: N - MD Response: Latest Tompkins Fall Score: 45 Fall Risk: High Risk Safety Measures: Call light Within Reach, Bed Alarm Zone 2, Side Rails Side Rails x2, Bed position Low and Locked. Fall Precautions: Yellow Socks Patient Fall Education Report given to Wes, RN, pt. remains stable and no signs of distress noted. aware to f/u on any abnormal am labs.
--- NOTE | 2020-06-07 07:17 | NUR ---
NURSE NOTES: Patient seen in bed in low fowlers position with no acute signs of distress and was on his phone. The patient is on room air and was infusing fluids at 55cc/hr. The patient had no complaints of pain. The bed was in the lowest position, locked, side rails x2, and call light within reach.
[2020-06-07] MEDS: Thiamine 100mg tab ORAL SCH (08:10)
[2020-06-07 09:44] LABS: BASOPHILS % (AUTO) 1.3 % (0.0-2.0); EOSINOPHILS % (AUTO) 7.2 % (0.0-3.0); HEMATOCRIT 41.2 % (42.0-52.0); HEMOGLOBIN 14.8 G/DL (14.2-18.0); LYMPHOCYTES % (AUTO) 17.2 % (20.0-45.0); MEAN CORPUSCULAR VOLUME 95 FL (80-99); MONOCYTES % (AUTO) 13.6 % (1.0-10.0); NEUTROPHILS % (AUTO) 60.7 % (45.0-75.0); PLATELET COUNT 156 K/UL (150-450); RED BLOOD COUNT 4.32 M/UL (4.70-6.10); RED CELL DISTRIBUTION WIDTH 13.5 % (11.6-14.8); WHITE BLOOD COUNT 4.8 K/UL (4.8-10.8)
[2020-06-07 10:19] LABS: ALANINE AMINOTRANSFERASE 43 U/L (12-78); ALBUMIN 3.4 G/DL (3.4-5.0); ALBUMIN/GLOBULIN RATIO 0.9 (1.0-2.7); ALKALINE PHOSPHATASE 91 U/L (46-116); AMYLASE 79 U/L (25-115); ANION GAP 11 mmol/L (5-15); ASPARTATE AMINO TRANSFERASE 103 U/L (15-37); BILIRUBIN,TOTAL 1.8 MG/DL (0.2-1.0); BLOOD UREA NITROGEN 5 mg/dL (7-18); CALCIUM 8.7 MG/DL (8.5-10.1); CARBON DIOXIDE 28 MMOL/L (21-32); CHLORIDE 96 MMOL/L (98-107); CREATININE 0.9 MG/DL (0.55-1.30); POTASSIUM 3.7 MMOL/L (3.5-5.1); SODIUM 135 MMOL/L (136-145)
[2020-06-07 10:21] LABS: BILIRUBIN,DIRECT 0.5 MG/DL (0.0-0.3)
--- NOTE | 2020-06-07 10:27 | NUR ---
NURSE NOTES: Patient had an episode of 3 mL blood sputum that was expectorated at 1010. Contacted Dr. Roberts and made aware of episode.
--- NOTE | 2020-06-07 10:41 | General Progress Note ---
Subjective ROS Limited/Unobtainable: Yes Allergies: Coded Allergies: IODINE (Verified Allergy, Unknown, 06/05/20) Objective Last 24 Hour Vital Signs Date Time Temp Pulse Resp B/P (MAP) Pulse Ox O2 Delivery O2 Flow Rate FiO2 06/07/20 09:00 Room Air 06/07/20 08:00 61 06/07/20 08:00 98.1 62 18 117/68 (84) 96 06/07/20 06:24 97.9 06/07/20 05:54 71 20 124/81 (95) 98 06/07/20 04:02 75 06/07/20 04:00 97.9 61 20 103/62 (76) 99 06/07/20 00:00 98.0 63 20 120/64 (82) 99 06/06/20 23:53 104 06/06/20 21:00 Room Air 06/06/20 20:33 98.7 06/06/20 20:08 61 06/06/20 20:00 98.4 68 20 123/81 (95) 98 06/06/20 17:49 98.2 06/06/20 16:00 98.2 67 20 124/76 (92) 99 06/06/20 16:00 73 06/06/20 12:00 68 06/06/20 12:00 98.8 68 18 119/76 (90) 96 Intake and Output 06/06/20 06/07/20 19:00 07:00 Intake Total 1110 ml 385 ml Output Total 300 ml 1125 ml Balance 810 ml -740 ml IV Total 1110 ml 385 ml Output Urine Total 1125 ml Emesis 300 ml # Voids 4 3 Laboratory Tests 06/07/20 07:27: White Blood Count 4.8, Red Blood Count 4.32L, Hemoglobin 14.8, Hematocrit 41.2L, Mean Corpuscular Volume 95, Mean Corpuscular Hemoglobin 34.2H, Mean Corpuscular Hemoglobin Concent 35.8, Red Cell Distribution Width 13.5, Platelet Count 156, Mean Platelet Volume 7.0, Neutrophils (%) (Auto) 60.7, Lymphocytes (%) (Auto) 17.2L, Monocytes (%) (Auto) 13.6H, Eosinophils (%) (Auto) 7.2H, Basophils (%) (Auto) 1.3, Sodium Level 135L, Potassium Level 3.7, Chloride Level 96L, Carbon Dioxide Level 28, Anion Gap 11, Blood Urea Nitrogen 5L, Creatinine 0.9, Estimat Glomerular Filtration Rate > 60, Glucose Level 80, Calcium Level 8.7, Total Bilirubin 1.8H, Direct Bilirubin 0.5H, Aspartate Amino Transf (AST/SGOT) 103H, Alanine Aminotransferase (ALT/SGPT) 43, Alkaline Phosphatase 91, Total Protein 7.1, Albumin 3.4, Globulin 3.7, Albumin/Globulin Ratio 0.9L, Amylase Level 79, Lipase 344 Height (Feet): 5 Height (Inches): 9.00 Weight (Pounds): 171 General Appearance: no apparent distress EENT: normal ENT inspection Neck: normal alignment, supple, normal inspection Cardiovascular: normal rate Respiratory/Chest: lungs clear Abdomen: hypoactive bowel sounds Extremities: non-tender Assessment/Plan Assessment/Plan: h/o cirrhosis ? GIB abd us>>reviewed pending MRCP ppi hepatitis panel repeat labs including amylase and lipase will fu pain control advance diet Fabiano Holley MD Jun 07, 2020 10:41
--- NOTE | 2020-06-07 10:59 | Surgery Progress Note ---
Surgery Progress Note Subjective Additional Comments pending mrcp no n/v labs noted lip florence wnl t bili elevated Objective Last 24 Hour Vital Signs Date Time Temp Pulse Resp B/P (MAP) Pulse Ox O2 Delivery O2 Flow Rate FiO2 06/07/20 09:00 Room Air 06/07/20 08:00 61 06/07/20 08:00 98.1 62 18 117/68 (84) 96 06/07/20 06:24 97.9 06/07/20 05:54 71 20 124/81 (95) 98 06/07/20 04:02 75 06/07/20 04:00 97.9 61 20 103/62 (76) 99 06/07/20 00:00 98.0 63 20 120/64 (82) 99 06/06/20 23:53 104 06/06/20 21:00 Room Air 06/06/20 20:33 98.7 06/06/20 20:08 61 06/06/20 20:00 98.4 68 20 123/81 (95) 98 06/06/20 17:49 98.2 06/06/20 16:00 98.2 67 20 124/76 (92) 99 06/06/20 16:00 73 06/06/20 12:00 68 06/06/20 12:00 98.8 68 18 119/76 (90) 96 I&O Intake and Output 06/06/20 06/07/20 19:00 07:00 Intake Total 1110 ml 385 ml Output Total 300 ml 1125 ml Balance 810 ml -740 ml IV Total 1110 ml 385 ml Output Urine Total 1125 ml Emesis 300 ml # Voids 4 3 Wound: clean Cardiovascular: RSR Respiratory: decreased breath sounds Abdomen: soft, flat, non-tender, present bowel sounds, non-distended Extremities: no edema, no tenderness, no cyanosis Laboratory Tests Test 06/07/20 07:27 White Blood Count 4.8 K/UL (4.8-10.8) Red Blood Count 4.32 M/UL (4.70-6.10) L Hemoglobin 14.8 G/DL (14.2-18.0) Hematocrit 41.2 % (42.0-52.0) L Mean Corpuscular Volume 95 FL (80-99) Mean Corpuscular Hemoglobin 34.2 PG (27.0-31.0) H Mean Corpuscular Hemoglobin Concent 35.8 G/DL (32.0-36.0) Red Cell Distribution Width 13.5 % (11.6-14.8) Platelet Count 156 K/UL (150-450) Mean Platelet Volume 7.0 FL (6.5-10.1) Neutrophils (%) (Auto) 60.7 % (45.0-75.0) Lymphocytes (%) (Auto) 17.2 % (20.0-45.0) L Monocytes (%) (Auto) 13.6 % (1.0-10.0) H Eosinophils (%) (Auto) 7.2 % (0.0-3.0) H Basophils (%) (Auto) 1.3 % (0.0-2.0) Sodium Level 135 MMOL/L (136-145) L Potassium Level 3.7 MMOL/L (3.5-5.1) Chloride Level 96 MMOL/L (98-107) L Carbon Dioxide Level 28 MMOL/L (21-32) Anion Gap 11 mmol/L (5-15) Blood Urea Nitrogen 5 mg/dL (7-18) L Creatinine 0.9 MG/DL (0.55-1.30) Estimat Glomerular Filtration Rate > 60 mL/min (>60) Glucose Level 80 MG/DL (74-106) Calcium Level 8.7 MG/DL (8.5-10.1) Total Bilirubin 1.8 MG/DL (0.2-1.0) H Direct Bilirubin 0.5 MG/DL (0.0-0.3) H Aspartate Amino Transf (AST/SGOT) 103 U/L (15-37) H Alanine Aminotransferase (ALT/SGPT) 43 U/L (12-78) Alkaline Phosphatase 91 U/L (46-116) Total Protein 7.1 G/DL (6.4-8.2) Albumin 3.4 G/DL (3.4-5.0) Globulin 3.7 g/dL Albumin/Globulin Ratio 0.9 (1.0-2.7) L Amylase Level 79 U/L (25-115) Lipase 344 U/L (73-393) Plan Problems: (1) Syncope (2) Abdominal pain Assessment & Plan: 44M acute pancreatitis hx of chronic pancreatitis with heavy etoh abuse states last drink a few days ago pain 10?10 and asking for morphine and Dilaudid by name no n/v/f/c tolerating diet labs improved no acute surgical intervention gi input appreciated will follow with recs thank you (3) GI Vincenzo Chun Jun 07, 2020 10:59
--- NOTE | 2020-06-07 12:05 | NUR ---
NURSE NOTES: Patient has order for SCDs as DVT prophylaxis; patient refuses SCDs and states' " no, I dont want them", Patient is ambulatory, alert and oriented x4.
--- NOTE | 2020-06-07 13:11 | Consultation ---
History of Present Illness General Date patient seen: Jun 07, 2020 Chief Complaint: Abdominal Pain Present Illness Allergies: Coded Allergies: IODINE (Verified Allergy, Unknown, 06/05/20) Medication History Scheduled Olanzapine* (Zyprexa*), 5 MG ORAL DAILY, (Reported) Quetiapine Fumarate* (Seroquel*), 200 MG ORAL DAILY, (Reported) Sertraline Hcl* (Zoloft*), 100 MG PO DAILY, (Reported) Patient History Healthcare decision maker Resuscitation status Advanced Directive on File Physical Exam Last 24 Hour Vital Signs Date Time Temp Pulse Resp B/P (MAP) Pulse Ox O2 Delivery O2 Flow Rate FiO2 06/07/20 12:00 98.1 79 18 132/95 (107) 96 06/07/20 09:00 Room Air 06/07/20 08:00 61 06/07/20 08:00 98.1 62 18 117/68 (84) 96 06/07/20 06:24 97.9 06/07/20 05:54 71 20 124/81 (95) 98 06/07/20 04:02 75 06/07/20 04:00 97.9 61 20 103/62 (76) 99 06/07/20 00:00 98.0 63 20 120/64 (82) 99 06/06/20 23:53 104 06/06/20 21:00 Room Air 06/06/20 20:33 98.7 06/06/20 20:08 61 06/06/20 20:00 98.4 68 20 123/81 (95) 98 06/06/20 17:49 98.2 06/06/20 16:00 98.2 67 20 124/76 (92) 99 06/06/20 16:00 73 Intake and Output 06/06/20 06/07/20 19:00 07:00 Intake Total 1110 ml 385 ml Output Total 300 ml 1125 ml Balance 810 ml -740 ml IV Total 1110 ml 385 ml Output Urine Total 1125 ml Emesis 300 ml # Voids 4 3 Laboratory Tests Test 06/07/20 07:27 White Blood Count 4.8 K/UL (4.8-10.8) Red Blood Count 4.32 M/UL (4.70-6.10) L Hemoglobin 14.8 G/DL (14.2-18.0) Hematocrit 41.2 % (42.0-52.0) L Mean Corpuscular Volume 95 FL (80-99) Mean Corpuscular Hemoglobin 34.2 PG (27.0-31.0) H Mean Corpuscular Hemoglobin Concent 35.8 G/DL (32.0-36.0) Red Cell Distribution Width 13.5 % (11.6-14.8) Platelet Count 156 K/UL (150-450) Mean Platelet Volume 7.0 FL (6.5-10.1) Neutrophils (%) (Auto) 60.7 % (45.0-75.0) Lymphocytes (%) (Auto) 17.2 % (20.0-45.0) L Monocytes (%) (Auto) 13.6 % (1.0-10.0) H Eosinophils (%) (Auto) 7.2 % (0.0-3.0) H Basophils (%) (Auto) 1.3 % (0.0-2.0) Sodium Level 135 MMOL/L (136-145) L Potassium Level 3.7 MMOL/L (3.5-5.1) Chloride Level 96 MMOL/L (98-107) L Carbon Dioxide Level 28 MMOL/L (21-32) Anion Gap 11 mmol/L (5-15) Blood Urea Nitrogen 5 mg/dL (7-18) L Creatinine 0.9 MG/DL (0.55-1.30) Estimat Glomerular Filtration Rate > 60 mL/min (>60) Glucose Level 80 MG/DL (74-106) Calcium Level 8.7 MG/DL (8.5-10.1) Total Bilirubin 1.8 MG/DL (0.2-1.0) H Direct Bilirubin 0.5 MG/DL (0.0-0.3) H Aspartate Amino Transf (AST/SGOT) 103 U/L (15-37) H Alanine Aminotransferase (ALT/SGPT) 43 U/L (12-78) Alkaline Phosphatase 91 U/L (46-116) Total Protein 7.1 G/DL (6.4-8.2) Albumin 3.4 G/DL (3.4-5.0) Globulin 3.7 g/dL Albumin/Globulin Ratio 0.9 (1.0-2.7) L Amylase Level 79 U/L (25-115) Lipase 344 U/L (73-393) Height (Feet): 5 Height (Inches): 9.00 Weight (Pounds): 171 Medications Current Medications Medications (Trade) Dose Ordered Sig/Avi Route PRN Reason Start Time Stop Time Status Last Admin Dose Admin Barium Sulfate (Readi-Cat 2) 450 ml NOW PRN ORAL Radiology Procedure 06/06/20 09:00 06/08/20 08:59 Chlordiazepoxide (Librium) 25 mg Q8HR ORAL 06/07/20 06:30 06/14/20 06:29 06/07/20 06:27 Folic Acid (Folate) 1 mg DAILY ORAL 06/07/20 09:00 07/07/20 08:59 06/07/20 08:09 Hydromorphone HCl (Dilaudid) 0.5 mg Q4H PRN IVP Severe Pain (Pain Scale 7-10) 06/06/20 19:00 06/13/20 18:59 06/07/20 09:58 Lorazepam (Ativan) 2 mg Q4HR PRN ORAL For Anxiety 06/06/20 22:45 06/13/20 22:44 Ondansetron HCl (Zofran) 4 mg Q6H PRN IVP Nausea & Vomiting 06/05/20 22:15 07/05/20 22:14 06/06/20 16:21 Pantoprazole (Protonix) 40 mg DAILY ORAL 06/06/20 09:00 07/06/20 08:59 06/07/20 08:10 Sodium Chloride 1,000 ml @ 55 mls/hr [id number] IV 06/05/20 22:15 07/05/20 22:14 06/07/20 10:33 Thiamine HCl (Vitamin B1) 100 mg DAILY ORAL 06/07/20 09:00 07/07/20 08:59 06/07/20 08:10 Assessment/Plan Assessment/Plan: (1) Abdominal pain (2) Liver cirrhosis seen dictated Aamir Nicole Jun 07, 2020 13:11
--- NOTE | 2020-06-07 15:11 | NUR ---
CASE MANAGEMENT:REVIEW 06/07/20 SI: SYNCOPE. GIB 98.1 79 18 132/95 96% ON RA NA-135 TBILI+1.8 DBILI+0.5 AST+103 IS: IVF@55/HR FOLATE PO QD THIAMINE PO QD LIBRIUM PO Q8HRS IV DILAUDID Q4HRS PRN PLAN: START LOW FAT DIET PENDING MRCP
--- NOTE | 2020-06-07 15:12 | Cardiac Electrophysiology PN ---
Assessment/Plan Assessment/Plan 1. Syncope, likely due to cirrhosis and GI bleed, could be vagal. Ruled out for [place] and Echocardiogram showed EF 65% 2. Upper GI bleed due to esophageal varices in view of the patient with cirrhosis of the liver. Hemoglobin is [address] abdomen and MRCP pending by Dr. Holley. 3. Heavy alcohol use. Subjective Subjective Vomited blood again yesterday. Say has hX of esophageal varices with banding in [address] abdomen and MRCP tomorrow Objective Last 24 Hour Vital Signs Date Time Temp Pulse Resp B/P (MAP) Pulse Ox O2 Delivery O2 Flow Rate FiO2 06/07/20 14:15 67 06/07/20 12:00 98.1 79 18 132/95 (107) 96 06/07/20 09:00 Room Air 06/07/20 08:00 61 06/07/20 08:00 98.1 62 18 117/68 (84) 96 06/07/20 06:24 97.9 06/07/20 05:54 71 20 124/81 (95) 98 06/07/20 04:02 75 06/07/20 04:00 97.9 61 20 103/62 (76) 99 06/07/20 00:00 98.0 63 20 120/64 (82) 99 06/06/20 23:53 104 06/06/20 21:00 Room Air 06/06/20 20:33 98.7 06/06/20 20:08 61 06/06/20 20:00 98.4 68 20 123/81 (95) 98 06/06/20 17:49 98.2 06/06/20 16:00 98.2 67 20 124/76 (92) 99 06/06/20 16:00 73 Intake and Output 06/06/20 06/07/20 19:00 07:00 Intake Total 1110 ml 385 ml Output Total 300 ml 1125 ml Balance 810 ml -740 ml IV Total 1110 ml 385 ml Output Urine Total 1125 ml Emesis 300 ml # Voids 4 3 Laboratory Tests Test 06/07/20 07:27 White Blood Count 4.8 K/UL (4.8-10.8) Red Blood Count 4.32 M/UL (4.70-6.10) L Hemoglobin 14.8 G/DL (14.2-18.0) Hematocrit 41.2 % (42.0-52.0) L Mean Corpuscular Volume 95 FL (80-99) Mean Corpuscular Hemoglobin 34.2 PG (27.0-31.0) H Mean Corpuscular Hemoglobin Concent 35.8 G/DL (32.0-36.0) Red Cell Distribution Width 13.5 % (11.6-14.8) Platelet Count 156 K/UL (150-450) Mean Platelet Volume 7.0 FL (6.5-10.1) Neutrophils (%) (Auto) 60.7 % (45.0-75.0) Lymphocytes (%) (Auto) 17.2 % (20.0-45.0) L Monocytes (%) (Auto) 13.6 % (1.0-10.0) H Eosinophils (%) (Auto) 7.2 % (0.0-3.0) H Basophils (%) (Auto) 1.3 % (0.0-2.0) Sodium Level 135 MMOL/L (136-145) L Potassium Level 3.7 MMOL/L (3.5-5.1) Chloride Level 96 MMOL/L (98-107) L Carbon Dioxide Level 28 MMOL/L (21-32) Anion Gap 11 mmol/L (5-15) Blood Urea Nitrogen 5 mg/dL (7-18) L Creatinine 0.9 MG/DL (0.55-1.30) Estimat Glomerular Filtration Rate > 60 mL/min (>60) Glucose Level 80 MG/DL (74-106) Calcium Level 8.7 MG/DL (8.5-10.1) Total Bilirubin 1.8 MG/DL (0.2-1.0) H Direct Bilirubin 0.5 MG/DL (0.0-0.3) H Aspartate Amino Transf (AST/SGOT) 103 U/L (15-37) H Alanine Aminotransferase (ALT/SGPT) 43 U/L (12-78) Alkaline Phosphatase 91 U/L (46-116) Total Protein 7.1 G/DL (6.4-8.2) Albumin 3.4 G/DL (3.4-5.0) Globulin 3.7 g/dL Albumin/Globulin Ratio 0.9 (1.0-2.7) L Amylase Level 79 U/L (25-115) Lipase 344 U/L (73-393) Objective HEAD AND NECK: No JVD. LUNGS: Clear. CARDIOVASCULAR: Regular S1 and S2 and tachycardic. ABDOMEN: Soft. EXTREMITIES: No pitting edema. Carlos Duncan MD Jun 07, 2020 15:12
--- NOTE | 2020-06-07 19:13 | NUR ---
NURSE HAND-OFF REPORT: Important Events on Shift:[Resheduled CT abd/pelvis, 2 episodes of bloody expectorants] Patient Status: [Stable, AAO x4] Diet: [Low Fat Diet] Pending Orders: [N/A] Pending Results/Labs:[N/A] Pending MD notification:[N/A] Latest Vital Signs: Temperature 98.9 , Pulse 63 , B/P 118 /78 , Respiratory Rate 17 , O2 SAT 99 , Room Air, O2 Flow Rate . Vital Sign Comment: [] EKG Rhythm: Sinus Rhythm Rhythm change?: N MD Notified?: N - MD Response: Latest Tompkins Fall Score: 45 Fall Risk: High Risk Safety Measures: Call light Within Reach, Bed Alarm Zone 2, Side Rails Side Rails x2, Bed position Low and Locked. Fall Precautions: Yellow Socks Patient Fall Education Report given to [DARLENE Ramos].
--- NOTE | 2020-06-07 19:30 | NUR ---
NURSE NOTES: Received report from True Soto RN. Pt in stable condition, denies any pain or discomfort at this time. Will continue plan of care and close monitoring.
--- NOTE | 2020-06-07 22:10 | General Progress Note ---
Subjective ROS Limited/Unobtainable: Yes Allergies: Coded Allergies: IODINE (Verified Allergy, Unknown, 06/05/20) Objective Last 24 Hour Vital Signs Date Time Temp Pulse Resp B/P (MAP) Pulse Ox O2 Delivery O2 Flow Rate FiO2 06/07/20 16:00 63 06/07/20 16:00 98.9 65 17 118/78 (91) 99 06/07/20 14:15 67 06/07/20 12:00 98.1 79 18 132/95 (107) 96 06/07/20 09:00 Room Air 06/07/20 08:00 61 06/07/20 08:00 98.1 62 18 117/68 (84) 96 06/07/20 06:24 97.9 06/07/20 05:54 71 20 124/81 (95) 98 06/07/20 04:02 75 06/07/20 04:00 97.9 61 20 103/62 (76) 99 06/07/20 00:00 98.0 63 20 120/64 (82) 99 06/06/20 23:53 104 Intake and Output 06/06/20 06/07/20 19:00 07:00 Intake Total 1110 ml 385 ml Output Total 300 ml 1125 ml Balance 810 ml -740 ml IV Total 1110 ml 385 ml Output Urine Total 1125 ml Emesis 300 ml # Voids 4 3 Laboratory Tests 06/07/20 07:27: White Blood Count 4.8, Red Blood Count 4.32L, Hemoglobin 14.8, Hematocrit 41.2L, Mean Corpuscular Volume 95, Mean Corpuscular Hemoglobin 34.2H, Mean Corpuscular Hemoglobin Concent 35.8, Red Cell Distribution Width 13.5, Platelet Count 156, Mean Platelet Volume 7.0, Neutrophils (%) (Auto) 60.7, Lymphocytes (%) (Auto) 17.2L, Monocytes (%) (Auto) 13.6H, Eosinophils (%) (Auto) 7.2H, Basophils (%) (Auto) 1.3, Sodium Level 135L, Potassium Level 3.7, Chloride Level 96L, Carbon Dioxide Level 28, Anion Gap 11, Blood Urea Nitrogen 5L, Creatinine 0.9, Estimat Glomerular Filtration Rate > 60, Glucose Level 80, Calcium Level 8.7, Total Bilirubin 1.8H, Direct Bilirubin 0.5H, Aspartate Amino Transf (AST/SGOT) 103H, Alanine Aminotransferase (ALT/SGPT) 43, Alkaline Phosphatase 91, Total Protein 7.1, Albumin 3.4, Globulin 3.7, Albumin/Globulin Ratio 0.9L, Amylase Level 79, Lipase 344 Height (Feet): 5 Height (Inches): 9.00 Weight (Pounds): 171 Assessment/Plan Status: progressing Assessment/Plan: monitor for gi bleeding afebrile etoh cirrhosis check h/h no dt h/o drug abuse endoscopy per gi dr reviewed labs Dayne Thakur MD Jun 07, 2020 22:10
[2020-06-08] VITALS: BP 115/73
--- NOTE | 2020-06-08 01:02 | Consultation ---
DATE OF CONSULTATION: 06/07/2020 PAIN MANAGEMENT CONSULTATION CONSULTING PHYSICIAN: Darren Montilla MD REFERRING PHYSICIAN: Dayne Thakur MD PHYSICIAN OUT OF TOWN COLLECTION CLERK: PARMJIT Mcknight CHIEF COMPLAINT: Abdominal pain. HISTORY OF PRESENT ILLNESS: This is a 44-year-old male who has been seen on the telemetry floor of for initial pain management consultation. The patient was admitted under the care of Dr. Thakur due to GI bleed. The patient is seen by cytogeneticist at this time, having abdominal pain since October, worse in the past three days. It is constant acute pain, rating of 8/10, describing the pain as throbbing and aching pain. Movement makes it worse and is reduced with medication. He was started on Dilaudid 0.5 mg IV every 4 hours as needed for severe pain, which the patient reports has been adequately relieving pain to a tolerable level. We were consulted so the patient would have adequate pain control while here in the hospital. PAST MEDICAL HISTORY: Liver cirrhosis, depression, and peptic ulcer disease. PAST SURGICAL HISTORY: Cholecystectomy, left ankle surgery, and status post esophageal banding. SOCIAL HISTORY: Smoker of tobacco and alcohol abuse. Denies IV drug abuse. ALLERGIES: Iodine. MEDICATIONS: Zyprexa, Seroquel, and Zoloft. REVIEW OF SYSTEMS: Denies rash, fever, chills, sweating, dizziness, drowsiness, blurred vision, sore throat, or change in weight. No shortness of breath or chest pain. No nausea, vomiting, diarrhea, or blood in the stool or urine. No dysuria. PHYSICAL EXAMINATION: GENERAL: Alert, awake, and oriented. VITAL SIGNS: Blood pressure 132/95, heart rate 79, oxygen saturation 96%, respiratory rate 18, and temperature 98.1 degrees Fahrenheit. HEENT: PERRLA. NECK: Range of motion is full in all directions. No tenderness to paracervical muscles. No adenopathy. LUNGS: Decreased breath sounds bilaterally. HEART: S1 and S2, regular. ABDOMEN: There is tenderness to palpation BACK: Range of motion is decreased in flexion and extension. EXTREMITIES: Upper and lower extremity range of motion is decreased due to the patient's condition. No cyanosis. No clubbing. Sensory is intact. Reflexes are not obtainable. No adenopathy. ASSESSMENT AND PLAN: The patient is a 44-year-old male with abdominal pain and liver cirrhosis. The patient will be continued on Dilaudid as needed. No prescription opioid medication for discharge as per the patient's request. We recommend the patient be seen by psychiatrist as per electrical fitter. The patient was discussed with Dr. Montilla and Dr. Montilla concurred. We will follow the patient. Thank you very much for the courtesy of this consultation. Darren Montilla M.D. PARMJIT Mcknight DR: Ginger JOB#: [id number] CC:
[2020-06-08 04:00] VITALS: BP 119/83
[2020-06-08] MEDS: Hydromorphone 0.5mg/0.5ml inj IVP PRN ×5 (04:48→18:22)
[2020-06-08] MEDS: chlordiazePOXIDE 25mg Cap ORAL SCH ×3 (06:34→21:36)
--- NOTE | 2020-06-08 07:22 | NUR ---
NURSE NOTES: Received report from DARLENE Guzman. Pt is sleeping supine in bed. Pt awoken at this time, AOx4, verbalized understanding of NPO for diagnostic of MRCP and CT of pelvis today. pt is stable on RA, even and unlabored breathing. Pt is stable, no s/s or complaint of distress at this time. pt R wrist 20g running 1/2 NS at 75cc, asymptomatic and intact. Pt bed low and locked, call light in reach, and bed alarm on. Pt verbalized understanding to call for help.
--- NOTE | 2020-06-08 07:51 | NUR ---
NURSE HAND-OFF REPORT: Important Events on Shift: None Patient Status: stable Diet: NPO Pending Orders: colonoscopy, EGD Pending Results/Labs: cbc Pending MD notification: none Latest Vital Signs: Temperature 98.5 , Pulse 83 , B/P 119 /83 , Respiratory Rate 18 , O2 SAT 98 , Room Air, O2 Flow Rate . Vital Sign Comment: EKG Rhythm: Sinus Rhythm Rhythm change?: N MD Notified?: N - MD Response: Latest Tompkins Fall Score: 45 Fall Risk: High Risk Safety Measures: Call light Within Reach, Bed Alarm Zone 2, Side Rails Side Rails x2, Bed position Low and Locked. Fall Precautions: Yellow Socks Patient Fall Education Report given to Radha Saldana RN
[2020-06-08 08:00] VITALS: BP 132/85
--- NOTE | 2020-06-08 08:00 | NUR ---
NURSE NOTES: Pt is off tele tigre Qiu. pt stable and verbalizes understanding of diagnostic.
[2020-06-08 08:32] LABS: BASOPHILS % (AUTO) 1.4 % (0.0-2.0); HEMATOCRIT 41.4 % (42.0-52.0); LYMPHOCYTES % (AUTO) 15.5 % (20.0-45.0); MEAN CORPUSCULAR VOLUME 94 FL (80-99); MONOCYTES % (AUTO) 12.7 % (1.0-10.0); NEUTROPHILS % (AUTO) 60.4 % (45.0-75.0); PLATELET COUNT 139 K/UL (150-450); RED BLOOD COUNT 4.39 M/UL (4.70-6.10); RED CELL DISTRIBUTION WIDTH 13.3 % (11.6-14.8); WHITE BLOOD COUNT 6.3 K/UL (4.8-10.8)
[2020-06-08 09:04] LABS: ALANINE AMINOTRANSFERASE 38 U/L (12-78); ALBUMIN 3.4 G/DL (3.4-5.0); ALKALINE PHOSPHATASE 97 U/L (46-116); ANION GAP 8 mmol/L (5-15); ASPARTATE AMINO TRANSFERASE 65 U/L (15-37); BILIRUBIN,TOTAL 0.9 MG/DL (0.2-1.0); BLOOD UREA NITROGEN 9 mg/dL (7-18); CALCIUM 9.2 MG/DL (8.5-10.1); CARBON DIOXIDE 28 MMOL/L (21-32); CHLORIDE 101 MMOL/L (98-107); CREATININE 0.8 MG/DL (0.55-1.30); POTASSIUM 3.6 MMOL/L (3.5-5.1); SODIUM 137 MMOL/L (136-145)
--- NOTE | 2020-06-08 09:07 | NUR ---
NURSE NOTES: Pt off the floor for diagnostic, meds to be given when back
--- NOTE | 2020-06-08 09:09 | General Progress Note ---
Subjective ROS Limited/Unobtainable: Yes Allergies: Coded Allergies: IODINE (Verified Allergy, Unknown, 06/05/20) Objective Last 24 Hour Vital Signs Date Time Temp Pulse Resp B/P (MAP) Pulse Ox O2 Delivery O2 Flow Rate FiO2 06/08/20 08:59 Room Air 06/08/20 08:00 98.5 77 17 132/85 (101) 97 06/08/20 05:18 98.5 06/08/20 04:00 97.7 83 18 119/83 (95) 98 06/08/20 04:00 79 06/08/20 00:00 59 06/08/20 00:00 98.5 79 20 115/73 (87) 96 06/07/20 21:00 Room Air 06/07/20 20:00 67 06/07/20 20:00 98.7 72 18 106/63 (77) 96 06/07/20 16:00 63 06/07/20 16:00 98.9 65 17 118/78 (91) 99 06/07/20 14:15 67 06/07/20 12:00 98.1 79 18 132/95 (107) 96 Intake and Output 06/07/20 06/08/20 19:02 07:02 Intake Total 935 ml 240 ml Output Total 700 ml Balance 935 ml -460 ml Intake Oral 550 ml 240 ml IV Total 385 ml Output Urine Total 700 ml # Voids 2 2 # Bowel Movements 2 Laboratory Tests 06/08/20 07:05: White Blood Count 6.3, Red Blood Count 4.39L, Hemoglobin 15.0, Hematocrit 41.4L, Mean Corpuscular Volume 94, Mean Corpuscular Hemoglobin 34.2H, Mean Corpuscular Hemoglobin Concent 36.2H, Red Cell Distribution Width 13.3, Platelet Count 139L, Mean Platelet Volume 6.9, Neutrophils (%) (Auto) 60.4, Lymphocytes (%) (Auto) 15.5L, Monocytes (%) (Auto) 12.7H, Eosinophils (%) (Auto) 10.0H, Basophils (%) (Auto) 1.4, Sodium Level [Pending], Potassium Level [Pending], Chloride Level [Pending], Carbon Dioxide Level [Pending], Blood Urea Nitrogen [Pending], Creatinine [Pending], Estimat Glomerular Filtration Rate [Pending], Glucose Level [Pending], Calcium Level [Pending], Total Bilirubin [Pending], Aspartate Amino Transf (AST/SGOT) [Pending], Alanine Aminotransferase (ALT/SGPT) [Pending], Alkaline Phosphatase [Pending], Total Protein [Pending], Albumin [Pending], Globulin [Pending] Height (Feet): 5 Height (Inches): 9.00 Weight (Pounds): 171 General Appearance: no apparent distress EENT: PERRL/EOMI Neck: supple Cardiovascular: normal rate Respiratory/Chest: decreased breath sounds Abdomen: normal bowel sounds, non tender, soft Extremities: non-tender Assessment/Plan Status: progressing Assessment/Plan: h/o cirrhosis ? GIB abd us>>reviewed pending MRCP ppi hepatitis panel repeat labs will fu pain control Fabiano Holley MD Jun 08, 2020 09:09
[2020-06-08] MEDS: Thiamine 100mg tab ORAL SCH (09:31)
--- NOTE | 2020-06-08 10:33 | NUR ---
NURSE NOTES: Pt off tele for CT
--- NOTE | 2020-06-08 11:26 | NUR ---
Social Work This SW received a consult due to substance abuse. 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 Patient admitted to using Vodka daily and showing motivation for change (requesting to transfer to [facility]; has been there in the past). Patient explains he has a history of anxiety and taking medication for this. This Sw encouraged sobriety, will follow up with AA sponsor. Patient lives alone, whereas it makes it difficult to want to quit. SW to follow with assistance into [facility] treatment, as needed. Substance abuse and mental health clinics provided. This SW also discussed with patient cognitive approaches to managing anxiety as well.
[2020-06-08 12:00] VITALS: BP 105/60
--- NOTE | 2020-06-08 12:12 | Cardiac Electrophysiology PN ---
Assessment/Plan Assessment/Plan 1. Syncope, likely due to cirrhosis and GI bleed, could be vagal. Ruled out for HI and Echo showed EF 65% 2. Upper GI bleed due to esophageal varices in view of the patient with cirrhosis of the liver. Hemoglobin is 16 dropped to 14. S/P CT abdomen and MRCP pending. FU by Dr. Holley. 3. Heavy alcohol use. Subjective Subjective Vomited blood again today. Say has hX of esophageal varices with banding in [address] S/[address] abdomen and MRCP today. In SR in s Objective Last 24 Hour Vital Signs Date Time Temp Pulse Resp B/P (MAP) Pulse Ox O2 Delivery O2 Flow Rate FiO2 06/08/20 08:59 Room Air 06/08/20 08:00 98.5 77 17 132/85 (101) 97 06/08/20 08:00 88 06/08/20 05:18 98.5 06/08/20 04:00 97.7 83 18 119/83 (95) 98 06/08/20 04:00 79 06/08/20 00:00 59 06/08/20 00:00 98.5 79 20 115/73 (87) 96 06/07/20 21:00 Room Air 06/07/20 20:00 67 06/07/20 20:00 98.7 72 18 106/63 (77) 96 06/07/20 16:00 63 06/07/20 16:00 98.9 65 17 118/78 (91) 99 06/07/20 14:15 67 Intake and Output 06/07/20 06/08/20 19:00 07:00 Intake Total 935 ml 240 ml Output Total 700 ml Balance 935 ml -460 ml Intake Oral 550 ml 240 ml IV Total 385 ml Output Urine Total 700 ml # Voids 2 2 # Bowel Movements 2 Laboratory Tests Test 06/08/20 07:05 White Blood Count 6.3 K/UL (4.8-10.8) Red Blood Count 4.39 M/UL (4.70-6.10) L Hemoglobin 15.0 G/DL (14.2-18.0) Hematocrit 41.4 % (42.0-52.0) L Mean Corpuscular Volume 94 FL (80-99) Mean Corpuscular Hemoglobin 34.2 PG (27.0-31.0) H Mean Corpuscular Hemoglobin Concent 36.2 G/DL (32.0-36.0) H Red Cell Distribution Width 13.3 % (11.6-14.8) Platelet Count 139 K/UL (150-450) L Mean Platelet Volume 6.9 FL (6.5-10.1) Neutrophils (%) (Auto) 60.4 % (45.0-75.0) Lymphocytes (%) (Auto) 15.5 % (20.0-45.0) L Monocytes (%) (Auto) 12.7 % (1.0-10.0) H Eosinophils (%) (Auto) 10.0 % (0.0-3.0) H Basophils (%) (Auto) 1.4 % (0.0-2.0) Sodium Level 137 MMOL/L (136-145) Potassium Level 3.6 MMOL/L (3.5-5.1) Chloride Level 101 MMOL/L (98-107) Carbon Dioxide Level 28 MMOL/L (21-32) Anion Gap 8 mmol/L (5-15) Blood Urea Nitrogen 9 mg/dL (7-18) Creatinine 0.8 MG/DL (0.55-1.30) Estimat Glomerular Filtration Rate > 60 mL/min (>60) Glucose Level 89 MG/DL (74-106) Calcium Level 9.2 MG/DL (8.5-10.1) Total Bilirubin 0.9 MG/DL (0.2-1.0) Aspartate Amino Transf (AST/SGOT) 65 U/L (15-37) H Alanine Aminotransferase (ALT/SGPT) 38 U/L (12-78) Alkaline Phosphatase 97 U/L (46-116) Total Protein 6.8 G/DL (6.4-8.2) Albumin 3.4 G/DL (3.4-5.0) Globulin 3.4 g/dL Albumin/Globulin Ratio 1.0 (1.0-2.7) Objective HEAD AND NECK: No JVD. LUNGS: Clear. CARDIOVASCULAR: Regular S1 and S2 and tachycardic. ABDOMEN: Soft. EXTREMITIES: No pitting edema. Carlos Duncan MD Jun 08, 2020 12:12
--- NOTE | 2020-06-08 12:13 | NUR ---
NURSE NOTES: SCDs on
--- NOTE | 2020-06-08 12:14 | NUR ---
NURSE NOTES: Pt SW consult f/u. Called SW to have Pts needed information faxed to them. Heena notified. Addendum: 06/08/20 at 1216 by Radha Hoover RN RN [phone], H&P, med list, facesheet and prescreen form to [facility]: Hospital Navigation
--- NOTE | 2020-06-08 13:15 | Diagnostic Imaging Report ---
Indication: Reason For Exam: ABD PAIN Technique: Coronal and axial single shot fast spin-echo breath-hold, axial T2 FRFSE, 2-D thick slab MRCP, AXIAL 2-D FIESTA fat saturated, axial 3-D dual echo breath-hold, water weighted axial LAVA FLEX, revealed 3-D MRCP images were obtained of the abdomen. MIP reconstructions were generated of the bile ducts Comparison: Abdominal sonogram dated 06/05/2020, also subsequent CT scan of later the same day Findings: There is some image degradation due to respiratory motion artifact. The gallbladder is absent. The extrahepatic ducts and central intrahepatic ducts are dilated, the upstream common bile duct measuring up to 10 mm in diameter. No filling defects to suggest choledocholithiasis demonstrated. The common bile duct is seen all the way to the ampulla, and no definite pancreatic head mass is demonstrated, although evaluation for such is somewhat limited due to the motion artifact as well as due to the absence of IV contrast. The ectatic duct is somewhat ectatic, measuring 3 to 4 mm. It is seen all the way to the duodenum. The pancreatic parenchyma appears normal. There is slight liver contour irregularity. Flow voids are seen within the lesser sac, likely indicating perigastric varices. These are better demonstrated on the subsequent CT scan.. No free intraperitoneal fluid or splenomegaly is demonstrated. The adrenals, kidneys, spleen are unremarkable. There are colonic diverticula. The bladder is normal. Impression: Somewhat limited exam, as described, due to respiratory motion artifact Dilatation of the extra hepatic and 2 some extent the central intrahepatic ducts. No definite downstream obstructive lesion is demonstrated, also possibly related to postcholecystectomy state. Mild ectasia of the pancreatic duct. Etiology/significance uncertain Slight hepatic contour irregularity, suspect early cirrhotic change. Flow-voids in the lesser sac likely represent perigastric varices. These are better demonstrated on subsequent CT scan
--- NOTE | 2020-06-08 13:16 | NUR ---
Social Work Patient requesting to fax chart information to [facility] @ fax [phone]. Chart information faxed; pending evaluation at this time.
--- NOTE | 2020-06-08 13:33 | NUR ---
CASE MANAGEMENT:REVIEW 06/08/20 SI:SYNCOPE. GIB H/O CIRRHOSIS AND VARICES 98.0 71 17 105/60 97% ON RA IS: FOLATE PO QD THIAMINE PO QD LIBRIUM PO Q8HRS IV DILAUDID Q4HRS PROTONIX PO QD IVF@55/HR : TELEMETRY STATUS DCP: FROM HOME PLAN: SOCIAL SERVICE CONSULT FOR ALCOHOLISM MRCP
--- NOTE | 2020-06-08 15:32 | NUR ---
SS note Patient explains Michelle at [place] received the chart fax; patient will be notified whether he has been accepted into [facility]. Patient may require assistance with transportation upon discharge to this program when medically cleared. SW to follow, as needed.
--- NOTE | 2020-06-08 15:36 | Diagnostic Imaging Report ---
Indication: Abdominal pain Technique: Spiral acquisitions obtained through the abdomen and pelvis. Patient given oral contrast No IV contrast utilized, due to history of contrast reaction. Multiplanar reconstructions were generated. Total dose length product 252 mGycm. CTDIvol(s) 4 mGy. Dose reduction achieved using automated exposure control Comparison: MRI of earlier the same day, abdominal sonogram dated 06/05/2020 Findings: Lack of IV contrast limits assessment of solid organs. The liver demonstrates equivocal slight surface nodularity. No definite focal abnormality. Venous varices are seen within the lesser sac, and considerable varices are seen surrounding the esophagus. The gallbladder has been removed. The common bile duct measures up to 11 mm in diameter. The pancreas is diffusely prominent but no definite pancreatic head mass is demonstrated. However, evaluation for such is somewhat limited in the absence of IV contrast. Prominence of the pancreatic duct is noted, but is much more evident on previous MRI The spleen is not enlarged. Splenic contours are somewhat lobulated. The adrenals, and left kidney are unremarkable. The right kidney demonstrates a punctate calculus in the calyx and a questionable punctate calculus in the right upper pole calyx. No focal renal parenchymal abnormality. No ureteral calculi, hydronephrosis, or hydroureter. No pelvic mass or adenopathy. There are colonic diverticula. No evidence of diverticulitis. Proximal small bowel loops are slightly prominent and contrast has passed only about half way through the small bowel, but no transition point is evident. No small bowel wall thickening.. No free or loculated intraperitoneal gas or fluid is evident. The stomach and duodenum are unremarkable. The included lung bases are clear. The bones are unremarkable. Impression: Evidence of prior cholecystectomy. Dilated extrahepatic bile ducts, without definite downstream obstructive lesion. May be baseline for this patient, related to postcholecystectomy state. However, the possibility of occult downstream lesion cannot be ruled out, particularly given the lack of IV contrast Slight hepatic surface nodularity is equivocal but if real, could indicate early cirrhotic change. There are definitely lesser sac and periesophageal varices, which are concerning for cirrhosis with portal hypertension Nonobstructive right renal calyceal calculi Colonic diverticulosis. No evidence of diverticulitis The CT scanner at [facility] is accredited by the [employer] and the scans are performed using protocols designed to limit radiation exposure to as low as reasonably achievable to attain images of sufficient resolution adequate for diagnostic evaluation.
[2020-06-08 16:00] VITALS: BP 103/65
--- NOTE | 2020-06-08 16:00 | Surgery Progress Note ---
Surgery Progress Note Subjective Additional Comments CT and MRI reviewed prior cholecystectomy no obstruction noted but dilated duct labs improving Objective Last 24 Hour Vital Signs Date Time Temp Pulse Resp B/P (MAP) Pulse Ox O2 Delivery O2 Flow Rate FiO2 06/08/20 12:00 98.0 71 17 105/60 (75) 97 06/08/20 12:00 64 06/08/20 08:59 Room Air 06/08/20 08:00 98.5 77 17 132/85 (101) 97 06/08/20 08:00 88 06/08/20 05:18 98.5 06/08/20 04:00 97.7 83 18 119/83 (95) 98 06/08/20 04:00 79 06/08/20 00:00 59 06/08/20 00:00 98.5 79 20 115/73 (87) 96 06/07/20 21:00 Room Air 06/07/20 20:00 67 06/07/20 20:00 98.7 72 18 106/63 (77) 96 I&O Intake and Output 06/07/20 06/08/20 19:00 07:00 Intake Total 935 ml 240 ml Output Total 700 ml Balance 935 ml -460 ml Intake Oral 550 ml 240 ml IV Total 385 ml Output Urine Total 700 ml # Voids 2 2 # Bowel Movements 2 Cardiovascular: RSR Respiratory: clear Abdomen: soft, non-tender, present bowel sounds Extremities: no edema, no tenderness, no cyanosis Laboratory Tests Test 06/08/20 07:05 White Blood Count 6.3 K/UL (4.8-10.8) Red Blood Count 4.39 M/UL (4.70-6.10) L Hemoglobin 15.0 G/DL (14.2-18.0) Hematocrit 41.4 % (42.0-52.0) L Mean Corpuscular Volume 94 FL (80-99) Mean Corpuscular Hemoglobin 34.2 PG (27.0-31.0) H Mean Corpuscular Hemoglobin Concent 36.2 G/DL (32.0-36.0) H Red Cell Distribution Width 13.3 % (11.6-14.8) Platelet Count 139 K/UL (150-450) L Mean Platelet Volume 6.9 FL (6.5-10.1) Neutrophils (%) (Auto) 60.4 % (45.0-75.0) Lymphocytes (%) (Auto) 15.5 % (20.0-45.0) L Monocytes (%) (Auto) 12.7 % (1.0-10.0) H Eosinophils (%) (Auto) 10.0 % (0.0-3.0) H Basophils (%) (Auto) 1.4 % (0.0-2.0) Sodium Level 137 MMOL/L (136-145) Potassium Level 3.6 MMOL/L (3.5-5.1) Chloride Level 101 MMOL/L (98-107) Carbon Dioxide Level 28 MMOL/L (21-32) Anion Gap 8 mmol/L (5-15) Blood Urea Nitrogen 9 mg/dL (7-18) Creatinine 0.8 MG/DL (0.55-1.30) Estimat Glomerular Filtration Rate > 60 mL/min (>60) Glucose Level 89 MG/DL (74-106) Calcium Level 9.2 MG/DL (8.5-10.1) Total Bilirubin 0.9 MG/DL (0.2-1.0) Aspartate Amino Transf (AST/SGOT) 65 U/L (15-37) H Alanine Aminotransferase (ALT/SGPT) 38 U/L (12-78) Alkaline Phosphatase 97 U/L (46-116) Total Protein 6.8 G/DL (6.4-8.2) Albumin 3.4 G/DL (3.4-5.0) Globulin 3.4 g/dL Albumin/Globulin Ratio 1.0 (1.0-2.7) Plan Problems: (1) Syncope (2) Abdominal pain Assessment & Plan: 44M acute pancreatitis hx of chronic pancreatitis with heavy etoh abuse states last drink a few days ago pain 10?10 and asking for morphine and Dilaudid by name no n/v/f/c tolerating diet labs improved no acute surgical intervention gi input appreciated will follow with recs thank you There is some image degradation due to respiratory motion artifact. The gallbladder is absent. The extrahepatic ducts and central intrahepatic ducts are dilated, the upstream common bile duct measuring up to 10 mm in diameter. No filling defects to suggest choledocholithiasis demonstrated. The common bile duct is seen all the way to the ampulla, and no definite pancreatic head mass is demonstrated, although evaluation for such is somewhat limited due to the motion artifact as well as due to the absence of IV contrast. The ectatic duct is somewhat ectatic, measuring 3 to 4 mm. It is seen all the way to the duodenum. The pancreatic parenchyma appears normal. There is slight liver contour irregularity. Flow voids are seen within the lesser sac, likely indicating perigastric varices. These are better demonstrated on the subsequent CT scan.. No free intraperitoneal fluid or splenomegaly is demonstrated. The adrenals, kidneys, spleen are unremarkable. There are colonic diverticula. The bladder is normal. Impression: Somewhat limited exam, as described, due to respiratory motion artifact Dilatation of the extra hepatic and 2 some extent the central intrahepatic ducts. No definite downstream obstructive lesion is demonstrated, also possibly related to postcholecystectomy state. Mild ectasia of the pancreatic duct. Etiology/significance uncertain Slight hepatic contour irregularity, suspect early cirrhotic change. Flow-voids in the lesser sac likely represent perigastric varices. These are better demonstrated on subsequent CT scan (3) GI bleed Vincenzo Jim Jun 08, 2020 16:00
--- NOTE | 2020-06-08 16:55 | NUR ---
NURSE NOTES: Pt reports more pink tinged spit up, reports bloated and abd pain. Abd pain medication given an hour prior. md Holley made aware awaiting call back Addendum: 06/08/20 at 1828 by Radha Hoover RN RN awaiting call back
--- NOTE | 2020-06-08 18:27 | NUR ---
NURSE NOTES: Pt refusing SCDs at this time. Risks and benefits explained. Pt is ambulatory.
--- NOTE | 2020-06-08 18:40 | NUR ---
NURSE HAND-OFF REPORT: Important Events on Shift: blood tinged saliva/ emesis, CT of abd and MRCP done, could not do w/ contrast d/t allergy, pain management, healthcare social worker seen for ETOH abuse Patient Status: fc, stable Diet: NPO Pending Orders: Pending Results/Labs: Pending MD notification: magda notified of Pt emesis, awaiting call back Latest Vital Signs: Temperature 98.4 , Pulse 64 , B/P 103 /65 , Respiratory Rate 19 , O2 SAT 95 , Room Air, O2 Flow Rate . Vital Sign Comment: EKG Rhythm: Sinus Rhythm Rhythm change?: N MD Notified?: N - MD Response: Latest Tompkins Fall Score: 45 Fall Risk: High Risk Safety Measures: Call light Within Reach, Bed Alarm Zone 2, Side Rails Side Rails x2, Bed position Low and Locked. Fall Precautions: Yellow Socks Patient Fall Education Report to be given. Addendum: 06/08/20 at 5 by Radha Hoover RN RN report given to DARLENE shelby. Pt is stable.
--- NOTE | 2020-06-08 19:24 | NUR ---
NURSE NOTES: Contacted Dr Holley regarding Pt pain and inquiry about saltine crackers. pt said that crackers typically allevitate his pain. reported this to dr holley he said "ok" to give Pt saltine crackers at this time, otherwise NPO. Crackers given to pt. Addendum: 06/08/20 at 5 by Radha Hoover RN RN Dr Holley made aware of Pt pain
--- NOTE | 2020-06-08 19:35 | NUR ---
NURSE NOTES: Pt received from DARLENE Garcia. Pt is resting in bed and complains of Abdominal Pain 6/10 and is aware pain medication is due at 2200; Pt relieves pain slightly with rest and change of position. Pt is A/Ox4 and ambulatory; MD gives ok for patient to eat crackers. Pt has cardiac monitoring ST and asymptomatic. Pt is breathing unlabored on RA and sating well. Pt has LHand 22G running 1/2NS 55 ml/hr patent with skin dry and intact. Bed is locked and in lowest position with call light within reach. Will continue to monitor.
[2020-06-08 20:00] VITALS: BP 110/72
--- NOTE | 2020-06-08 20:58 | General Progress Note ---
Subjective ROS Limited/Unobtainable: Yes Allergies: Coded Allergies: IODINE (Verified Allergy, Unknown, 06/05/20) Objective Last 24 Hour Vital Signs Date Time Temp Pulse Resp B/P (MAP) Pulse Ox O2 Delivery O2 Flow Rate FiO2 06/08/20 16:00 64 06/08/20 16:00 98.4 73 19 103/65 (78) 95 06/08/20 12:00 98.0 71 17 105/60 (75) 97 06/08/20 12:00 64 06/08/20 08:59 Room Air 06/08/20 08:00 98.5 77 17 132/85 (101) 97 06/08/20 08:00 88 06/08/20 05:18 98.5 06/08/20 04:00 97.7 83 18 119/83 (95) 98 06/08/20 04:00 79 06/08/20 00:00 59 06/08/20 00:00 98.5 79 20 115/73 (87) 96 06/07/20 21:00 Room Air Intake and Output 06/07/20 06/08/20 19:00 07:00 Intake Total 935 ml 240 ml Output Total 700 ml Balance 935 ml -460 ml Intake Oral 550 ml 240 ml IV Total 385 ml Output Urine Total 700 ml # Voids 2 2 # Bowel Movements 2 Laboratory Tests 06/08/20 07:05: White Blood Count 6.3, Red Blood Count 4.39L, Hemoglobin 15.0, Hematocrit 41.4L, Mean Corpuscular Volume 94, Mean Corpuscular Hemoglobin 34.2H, Mean Corpuscular Hemoglobin Concent 36.2H, Red Cell Distribution Width 13.3, Platelet Count 139L, Mean Platelet Volume 6.9, Neutrophils (%) (Auto) 60.4, Lymphocytes (%) (Auto) 15.5L, Monocytes (%) (Auto) 12.7H, Eosinophils (%) (Auto) 10.0H, Basophils (%) (Auto) 1.4, Sodium Level 137, Potassium Level 3.6, Chloride Level 101, Carbon Dioxide Level 28, Anion Gap 8, Blood Urea Nitrogen 9, Creatinine 0.8, Estimat Glomerular Filtration Rate > 60, Glucose Level 89, Calcium Level 9.2, Total Bilirubin 0.9, Aspartate Amino Transf (AST/SGOT) 65H, Alanine Aminotransferase (ALT/SGPT) 38, Alkaline Phosphatase 97, Total Protein 6.8, Albumin 3.4, Globulin 3.4, Albumin/Globulin Ratio 1.0 Height (Feet): 5 Height (Inches): 9.00 Weight (Pounds): 171 Assessment/Plan Problem List: (1) Syncope ICD Codes: R55 - Syncope and collapse SNOMED: 023843815 (2) Abdominal pain ICD Codes: R10.9 - Unspecified abdominal pain SNOMED: 78449847 (3) GI bleed ICD Codes: K92.2 - Gastrointestinal hemorrhage, unspecified SNOMED: 30457882 Status: progressing Assessment/Plan: had hemetemsis mild amount today h/h is stable will discuss with gi dr soto cirrhosis Dayne Thakur MD Jun 08, 2020 20:58
[2020-06-09] VITALS: BP 118/74
[2020-06-09] MEDS: Hydromorphone 0.5mg/0.5ml inj IVP PRN ×3 (02:02→13:30)
[2020-06-09 04:00] VITALS: BP 136/86
[2020-06-09] MEDS: chlordiazePOXIDE 25mg Cap ORAL SCH ×2 (05:32→14:00)
--- NOTE | 2020-06-09 06:29 | Consultation ---
History of Present Illness General Chief Complaint: Abdominal Pain Present Illness Allergies: Coded Allergies: IODINE (Verified Allergy, Unknown, 06/05/20) Medication History Scheduled Olanzapine* (Zyprexa*), 5 MG ORAL DAILY, (Reported) Quetiapine Fumarate* (Seroquel*), 200 MG ORAL DAILY, (Reported) Sertraline Hcl* (Zoloft*), 100 MG PO DAILY, (Reported) Patient History Healthcare decision maker Resuscitation status Advanced Directive on File Physical Exam Last 24 Hour Vital Signs Date Time Temp Pulse Resp B/P (MAP) Pulse Ox O2 Delivery O2 Flow Rate FiO2 06/09/20 00:00 96.8 77 19 118/74 (89) 95 06/08/20 21:00 Room Air 06/08/20 20:00 73 06/08/20 20:00 98.5 76 19 110/72 (85) 96 06/08/20 16:00 64 06/08/20 16:00 98.4 73 19 103/65 (78) 95 06/08/20 12:00 98.0 71 17 105/60 (75) 97 06/08/20 12:00 64 06/08/20 08:59 Room Air 06/08/20 08:00 98.5 77 17 132/85 (101) 97 06/08/20 08:00 88 Intake and Output 06/08/20 06/09/20 19:00 07:00 Intake Total 200 ml Balance 200 ml Intake Oral 200 ml # Voids 4 Laboratory Tests Test 06/08/20 07:05 White Blood Count 6.3 K/UL (4.8-10.8) Red Blood Count 4.39 M/UL (4.70-6.10) L Hemoglobin 15.0 G/DL (14.2-18.0) Hematocrit 41.4 % (42.0-52.0) L Mean Corpuscular Volume 94 FL (80-99) Mean Corpuscular Hemoglobin 34.2 PG (27.0-31.0) H Mean Corpuscular Hemoglobin Concent 36.2 G/DL (32.0-36.0) H Red Cell Distribution Width 13.3 % (11.6-14.8) Platelet Count 139 K/UL (150-450) L Mean Platelet Volume 6.9 FL (6.5-10.1) Neutrophils (%) (Auto) 60.4 % (45.0-75.0) Lymphocytes (%) (Auto) 15.5 % (20.0-45.0) L Monocytes (%) (Auto) 12.7 % (1.0-10.0) H Eosinophils (%) (Auto) 10.0 % (0.0-3.0) H Basophils (%) (Auto) 1.4 % (0.0-2.0) Sodium Level 137 MMOL/L (136-145) Potassium Level 3.6 MMOL/L (3.5-5.1) Chloride Level 101 MMOL/L (98-107) Carbon Dioxide Level 28 MMOL/L (21-32) Anion Gap 8 mmol/L (5-15) Blood Urea Nitrogen 9 mg/dL (7-18) Creatinine 0.8 MG/DL (0.55-1.30) Estimat Glomerular Filtration Rate > 60 mL/min (>60) Glucose Level 89 MG/DL (74-106) Calcium Level 9.2 MG/DL (8.5-10.1) Total Bilirubin 0.9 MG/DL (0.2-1.0) Aspartate Amino Transf (AST/SGOT) 65 U/L (15-37) H Alanine Aminotransferase (ALT/SGPT) 38 U/L (12-78) Alkaline Phosphatase 97 U/L (46-116) Total Protein 6.8 G/DL (6.4-8.2) Albumin 3.4 G/DL (3.4-5.0) Globulin 3.4 g/dL Albumin/Globulin Ratio 1.0 (1.0-2.7) Height (Feet): 5 Height (Inches): 9.00 Weight (Pounds): 171 Medications Current Medications Medications (Trade) Dose Ordered Sig/Avi Route PRN Reason Start Time Stop Time Status Last Admin Dose Admin Barium Sulfate (Readi-Cat 2) 450 ml NOW PRN ORAL Radiology Procedure 06/08/20 10:30 06/10/20 10:29 Chlordiazepoxide (Librium) 25 mg Q8HR ORAL 06/07/20 06:30 06/14/20 06:29 06/09/20 05:32 Folic Acid (Folate) 1 mg DAILY ORAL 06/07/20 09:00 07/07/20 08:59 06/08/20 09:31 Hydromorphone HCl (Dilaudid) 0.5 mg Q4H PRN IVP Severe Pain (Pain Scale 7-10) 06/06/20 19:00 06/13/20 18:59 06/09/20 02:02 Lorazepam (Ativan) 2 mg Q4HR PRN ORAL For Anxiety 06/06/20 22:45 06/13/20 22:44 Ondansetron HCl (Zofran) 4 mg Q6H PRN IVP Nausea & Vomiting 06/05/20 22:15 07/05/20 22:14 06/08/20 18:22 Pantoprazole (Protonix) 40 mg DAILY ORAL 06/06/20 09:00 07/06/20 08:59 06/08/20 09:31 Sodium Chloride 1,000 ml @ 55 mls/hr [id number] IV 06/05/20 22:15 07/05/20 22:14 06/08/20 23:05 Thiamine HCl (Vitamin B1) 100 mg DAILY ORAL 06/07/20 09:00 07/07/20 08:59 06/08/20 09:31 Assessment/Plan Assessment/Plan: Hematology Consultation REQ MD: Dayne De La Garza RFC: Anemia eval HPI 44-year-old male with history of alcohol liver cirrhosis here with hematemesis and syncope. Patient says that this has happened to him before most recently about 10 days ago. He was admitted to [facility] where he had an endoscopy that showed that the patient's prior varices that he had approximately 14 years ago are no longer present. He was discharged 7 days ago. Says that over the past 24 hours he has vomited multiple times bright red blood. Also thinks that he is having hemoptysis. Said he had a syncopal episode last night. Denies head trauma. No fevers, chills, vision changes, focal numbness or weakness, slurred speech, chest pain, palpitation or shortness of breath, back pain, abdominal pain, diarrhea, dysuria. May need mrcp and imaging noted, pote ntial cirrhosis seen. Allergies: IODINE (Verified Allergy, Unknown, 06/05/20) COVID-19 Screening Contact w/high risk pt: No Experienced COVID-19 symptoms?: No COVID-19 Testing performed SUPER[employer]OR H[employer] PLATING: Yes COVID-19 Screening: Negative COVID-19 COVID-19 Testing Source: nasal Nursing Documentation-PM Past Medical History: No History, Except For Review of Systems All Other Systems: negative except mentioned in HPI Physical Exam Vitals: reviewed General: no apparent distress, alert, non-toxic Heent: normocephalic, atraumatic Respiratory: chest non-tender, lungs clear Cardiovascular: regular rate, rhythm, no edema Gastrointestinal: normal bowel sounds, non tender Rectal: deferred Genitourinary: normal inspection, no CVA tenderness Musculoskeletal: back normal, normal range of motion, gait/station normal, non- tender Neurologic: alert, motor strength/tone normal, oriented x3, sensory intact, responsive, speech normal Psychiatric: judgement/insight normal, memory normal, mood/affect normal Lymphatic: no adenopathy Labs: reviewed Imaging: noted Assessment and recs # Anemia due to gi bleed, with hx of cirrhosis --> coags have been reviewed, are wnl --> mrcp as per gi --> egd/colo as per gi team --> hgb 15 # Liver cirrhosis with hx of etoh use --> hx of etoh, rec cessation # Syncope --> likely related to gi bleed, could be vagal # Abdominal pain # Dvt ppx scds Appreciate consultation and dw Shalom Bauman MD Jun 09, 2020 06:29
--- NOTE | 2020-06-09 06:57 | NUR ---
NURSE HAND-OFF REPORT: Important Events on Shift:Pt continued scheduled medications. Pt allowed to eat crackers per Dr. Duncan. Patient Status: Stable, recurrent upper abdominal pain Diet: NPO Pending Orders: Pending Results/Labs:AM Labs Pending MD notification: Latest Vital Signs: Temperature 97.3 , Pulse 60 , B/P 136 /86 , Respiratory Rate 19 , O2 SAT 98 , Room Air, O2 Flow Rate . Vital Sign Comment: VSS EKG Rhythm: Sinus Rhythm Rhythm change?: N MD Notified?: N - MD Response: Latest Tompkins Fall Score: 45 Fall Risk: High Risk Safety Measures: Call light Within Reach, Bed Alarm Zone 2, Side Rails Side Rails x2, Bed position Low and Locked. Fall Precautions: Yellow Socks Patient Fall Education Report to be given.
[2020-06-09 07:12] LABS: EOSINOPHILS % (AUTO) 13.5 % (0.0-3.0); HEMATOCRIT 41.8 % (42.0-52.0); LYMPHOCYTES % (AUTO) 28.5 % (20.0-45.0); MEAN CORPUSCULAR VOLUME 95 FL (80-99); MONOCYTES % (AUTO) 13.8 % (1.0-10.0); NEUTROPHILS % (AUTO) 42.2 % (45.0-75.0); PLATELET COUNT 144 K/UL (150-450); RED BLOOD COUNT 4.38 M/UL (4.70-6.10); RED CELL DISTRIBUTION WIDTH 13.2 % (11.6-14.8); WHITE BLOOD COUNT 5.7 K/UL (4.8-10.8)
--- NOTE | 2020-06-09 07:49 | NUR ---
NURSE NOTES: pt is in bed and awake pt is on steward/stewardess second class showing no signs of cardiac or respiratory distress. pt is complaining of alcohol withdrawal symptoms (shaking/tremors). pt is complaining of 7/10. IV is patent and intact. bed is locked and in lowest position, call light is within reach. pt is requesting crackers to help /distract pain.
[2020-06-09 08:00] VITALS: BP 111/59
[2020-06-09 08:27] LABS: ALANINE AMINOTRANSFERASE 35 U/L (12-78); ALBUMIN 3.5 G/DL (3.4-5.0); ALKALINE PHOSPHATASE 90 U/L (46-116); ANION GAP 9 mmol/L (5-15); ASPARTATE AMINO TRANSFERASE 50 U/L (15-37); BILIRUBIN,TOTAL 0.8 MG/DL (0.2-1.0); BLOOD UREA NITROGEN 8 mg/dL (7-18); CALCIUM 9.1 MG/DL (8.5-10.1); CARBON DIOXIDE 29 MMOL/L (21-32); CHLORIDE 101 MMOL/L (98-107); POTASSIUM 3.8 MMOL/L (3.5-5.1); SODIUM 138 MMOL/L (136-145)
[2020-06-09] MEDS: Thiamine 100mg tab ORAL SCH (09:08)
--- NOTE | 2020-06-09 09:15 | General Progress Note ---
Subjective ROS Limited/Unobtainable: Yes Allergies: Coded Allergies: IODINE (Verified Allergy, Unknown, 06/05/20) Objective Last 24 Hour Vital Signs Date Time Temp Pulse Resp B/P (MAP) Pulse Ox O2 Delivery O2 Flow Rate FiO2 06/09/20 04:00 60 06/09/20 04:00 97.3 76 19 136/86 (103) 98 06/09/20 00:00 96.8 77 19 118/74 (89) 95 06/08/20 21:00 Room Air 06/08/20 20:00 73 06/08/20 20:00 98.5 76 19 110/72 (85) 96 06/08/20 16:00 64 06/08/20 16:00 98.4 73 19 103/65 (78) 95 06/08/20 12:00 98.0 71 17 105/60 (75) 97 06/08/20 12:00 64 Intake and Output 06/08/20 06/09/20 19:00 07:00 Intake Total 200 ml 240 ml Balance 200 ml 240 ml Intake Oral 200 ml 240 ml # Voids 4 1 Laboratory Tests 06/09/20 06:09: White Blood Count 5.7, Red Blood Count 4.38L, Hemoglobin 15.0, Hematocrit 41.8L, Mean Corpuscular Volume 95, Mean Corpuscular Hemoglobin 34.3H, Mean Corpuscular Hemoglobin Concent 35.9, Red Cell Distribution Width 13.2, Platelet Count 144L, Mean Platelet Volume 7.1, Neutrophils (%) (Auto) 42.2L, Lymphocytes (%) (Auto) 28.5, Monocytes (%) (Auto) 13.8H, Eosinophils (%) (Auto) 13.5H, Basophils (%) (Auto) 2.0, Sodium Level 138, Potassium Level 3.8, Chloride Level 101, Carbon Dioxide Level 29, Anion Gap 9, Blood Urea Nitrogen 8, Creatinine 1.0, Estimat Glomerular Filtration Rate > 60, Glucose Level 92, Calcium Level 9.1, Total Bilirubin 0.8, Aspartate Amino Transf (AST/SGOT) 50H, Alanine Aminotransferase (ALT/SGPT) 35, Alkaline Phosphatase 90, Total Protein 6.9, Albumin 3.5, Globulin 3.4, Albumin/Globulin Ratio 1.0, HIV (1&2) Antibody Rapid Negative Height (Feet): 5 Height (Inches): 9.00 Weight (Pounds): 171 General Appearance: no apparent distress EENT: normal ENT inspection Neck: supple Cardiovascular: tachycardia Respiratory/Chest: decreased breath sounds Abdomen: soft, hypoactive bowel sounds Extremities: non-tender Assessment/Plan Status: progressing Assessment/Plan: h/o cirrhosis ? GIB dilated CBD ETOH W/D abd us>>reviewed CT and MRCP ppi hepatitis panel repeat labs will fu pain control advance diet monitor for W/D need sout patient fu Fabiano Holley MD Jun 09, 2020 09:15
--- NOTE | 2020-06-09 10:42 | NUR ---
NURSE NOTES: spoke to PARMJIT Nicole about pt's pain and Tramadol 50 mg Q4hr for moderate break through pain was prescribed. order has been placed.
[2020-06-09] MEDS ORDERED: traMADol 50mg tab ORAL PRN (10:45)
[2020-06-09 12:00] VITALS: BP 116/66
--- NOTE | 2020-06-09 13:17 | Surgery Progress Note ---
Surgery Progress Note Subjective Additional Comments had dark emesis pain improved labs noted Objective Last 24 Hour Vital Signs Date Time Temp Pulse Resp B/P (MAP) Pulse Ox O2 Delivery O2 Flow Rate FiO2 06/09/20 12:00 98.2 86 20 116/66 (83) 97 06/09/20 11:36 98.0 06/09/20 09:39 87 18 113/70 97 06/09/20 09:09 78 20 111/59 97 06/09/20 09:00 Room Air 06/09/20 08:00 66 06/09/20 08:00 98.0 78 20 111/59 (76) 97 06/09/20 04:00 60 06/09/20 04:00 97.3 76 19 136/86 (103) 98 06/09/20 00:00 96.8 77 19 118/74 (89) 95 06/08/20 21:00 Room Air 06/08/20 20:00 73 06/08/20 20:00 98.5 76 19 110/72 (85) 96 06/08/20 16:00 64 06/08/20 16:00 98.4 73 19 103/65 (78) 95 I&O Intake and Output 06/08/20 06/09/20 19:00 07:00 Intake Total 200 ml 240 ml Balance 200 ml 240 ml Intake Oral 200 ml 240 ml # Voids 4 1 Cardiovascular: RSR Respiratory: decreased breath sounds Abdomen: soft, non-tender, present bowel sounds Extremities: no edema, no tenderness, no cyanosis Laboratory Tests Test 06/09/20 06:09 White Blood Count 5.7 K/UL (4.8-10.8) Red Blood Count 4.38 M/UL (4.70-6.10) L Hemoglobin 15.0 G/DL (14.2-18.0) Hematocrit 41.8 % (42.0-52.0) L Mean Corpuscular Volume 95 FL (80-99) Mean Corpuscular Hemoglobin 34.3 PG (27.0-31.0) H Mean Corpuscular Hemoglobin Concent 35.9 G/DL (32.0-36.0) Red Cell Distribution Width 13.2 % (11.6-14.8) Platelet Count 144 K/UL (150-450) L Mean Platelet Volume 7.1 FL (6.5-10.1) Neutrophils (%) (Auto) 42.2 % (45.0-75.0) L Lymphocytes (%) (Auto) 28.5 % (20.0-45.0) Monocytes (%) (Auto) 13.8 % (1.0-10.0) H Eosinophils (%) (Auto) 13.5 % (0.0-3.0) H Basophils (%) (Auto) 2.0 % (0.0-2.0) Sodium Level 138 MMOL/L (136-145) Potassium Level 3.8 MMOL/L (3.5-5.1) Chloride Level 101 MMOL/L (98-107) Carbon Dioxide Level 29 MMOL/L (21-32) Anion Gap 9 mmol/L (5-15) Blood Urea Nitrogen 8 mg/dL (7-18) Creatinine 1.0 MG/DL (0.55-1.30) Estimat Glomerular Filtration Rate > 60 mL/min (>60) Glucose Level 92 MG/DL (74-106) Calcium Level 9.1 MG/DL (8.5-10.1) Total Bilirubin 0.8 MG/DL (0.2-1.0) Aspartate Amino Transf (AST/SGOT) 50 U/L (15-37) H Alanine Aminotransferase (ALT/SGPT) 35 U/L (12-78) Alkaline Phosphatase 90 U/L (46-116) Total Protein 6.9 G/DL (6.4-8.2) Albumin 3.5 G/DL (3.4-5.0) Globulin 3.4 g/dL Albumin/Globulin Ratio 1.0 (1.0-2.7) HIV (1&2) Antibody Rapid Negative (NEGATIVE) Plan Problems: (1) Syncope (2) Abdominal pain Assessment & Plan: 44M acute pancreatitis hx of chronic pancreatitis with heavy etoh abuse states last drink a few days ago pain 10?10 and asking for morphine and Dilaudid by name no n/v/f/c tolerating diet labs improved no acute surgical intervention gi input appreciated will follow with recs thank you There is some image degradation due to respiratory motion artifact. The gallbladder is absent. The extrahepatic ducts and central intrahepatic ducts are dilated, the upstream common bile duct measuring up to 10 mm in diameter. No filling defects to suggest choledocholithiasis demonstrated. The common bile duct is seen all the way to the ampulla, and no definite pancreatic head mass is demonstrated, although evaluation for such is somewhat limited due to the motion artifact as well as due to the absence of IV contrast. The ectatic duct is somewhat ectatic, measuring 3 to 4 mm. It is seen all the way to the duodenum. The pancreatic parenchyma appears normal. There is slight liver contour irregularity. Flow voids are seen within the lesser sac, likely indicating perigastric varices. These are better demonstrated on the subsequent CT scan.. No free intraperitoneal fluid or splenomegaly is demonstrated. The adrenals, kidneys, spleen are unremarkable. There are colonic diverticula. The bladder is normal. Impression: Somewhat limited exam, as described, due to respiratory motion artifact Dilatation of the extra hepatic and 2 some extent the central intrahepatic ducts. No definite downstream obstructive lesion is demonstrated, also possibly related to postcholecystectomy state. Mild ectasia of the pancreatic duct. Etiology/significance uncertain Slight hepatic contour irregularity, suspect early cirrhotic change. Flow-voids in the lesser sac likely represent perigastric varices. These are better demon strated on subsequent CT scan (3) GI bleed Vincenzo Jim Jun 09, 2020 13:17
--- NOTE | 2020-06-09 14:14 | NUR ---
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 98.2 HR 86 RR 20 B/P 116/69 RA 98% IS: IVF NS @ 55ML/HR TELE STATUS
[2020-06-09] MEDS ORDERED: 1/2 NS 1000ml IV ONE (15:59)
--- NOTE | 2020-06-09 17:14 | NUR ---
NURSE NOTES: pt. 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 medical bracelet removed. inventory and discharge paperwork was reviewed and signed with pt. pt education was provided. pt belongings accounted for. pt verbalized understanding. ambulated with patient to lobby.pt. called his own transportation.
[2020-06-09] MEDS ORDERED: Docusate 100mg cap ORAL SCH (18:00)
--- NOTE | 2020-06-09 19:13 | Cardiac Electrophysiology PN ---
Assessment/Plan Assessment/Plan 1. Syncope due to cirrhosis and GI bleed, could be vagal. Ruled out for MD and Echo showed EF 65% 2. Upper GI bleed due to esophageal varices in view of the patient with cirrhosis of the liver. Hemoglobin is 16 dropped to 14. S/P CT abdomen and MRCP . FU by Dr. Holley. 3. Heavy alcohol use. Subjective Subjective Vomited blood yesterday. Say has hX of esophageal varices with banding in 2005 S/P CT abdomen and MRCP today. In SR in 70s DC planning in progress. FU DR Holley Objective Last 24 Hour Vital Signs Date Time Temp Pulse Resp B/P (MAP) Pulse Ox O2 Delivery O2 Flow Rate FiO2 06/09/20 12:00 98.2 86 20 116/66 (83) 97 06/09/20 12:00 88 06/09/20 11:36 98.0 06/09/20 09:39 87 18 113/70 97 06/09/20 09:09 78 20 111/59 97 06/09/20 09:00 Room Air 06/09/20 08:00 66 06/09/20 08:00 98.0 78 20 111/59 (76) 97 06/09/20 04:00 60 06/09/20 04:00 97.3 76 19 136/86 (103) 98 06/09/20 00:00 96.8 77 19 118/74 (89) 95 06/08/20 21:00 Room Air 06/08/20 20:00 73 06/08/20 20:00 98.5 76 19 110/72 (85) 96 Intake and Output 06/08/20 06/09/20 19:00 07:00 Intake Total 200 ml 240 ml Balance 200 ml 240 ml Intake Oral 200 ml 240 ml # Voids 4 1 Laboratory Tests Test 06/09/20 06:09 White Blood Count 5.7 K/UL (4.8-10.8) Red Blood Count 4.38 M/UL (4.70-6.10) L Hemoglobin 15.0 G/DL (14.2-18.0) Hematocrit 41.8 % (42.0-52.0) L Mean Corpuscular Volume 95 FL (80-99) Mean Corpuscular Hemoglobin 34.3 PG (27.0-31.0) H Mean Corpuscular Hemoglobin Concent 35.9 G/DL (32.0-36.0) Red Cell Distribution Width 13.2 % (11.6-14.8) Platelet Count 144 K/UL (150-450) L Mean Platelet Volume 7.1 FL (6.5-10.1) Neutrophils (%) (Auto) 42.2 % (45.0-75.0) L Lymphocytes (%) (Auto) 28.5 % (20.0-45.0) Monocytes (%) (Auto) 13.8 % (1.0-10.0) H Eosinophils (%) (Auto) 13.5 % (0.0-3.0) H Basophils (%) (Auto) 2.0 % (0.0-2.0) Sodium Level 138 MMOL/L (136-145) Potassium Level 3.8 MMOL/L (3.5-5.1) Chloride Level 101 MMOL/L (98-107) Carbon Dioxide Level 29 MMOL/L (21-32) Anion Gap 9 mmol/L (5-15) Blood Urea Nitrogen 8 mg/dL (7-18) Creatinine 1.0 MG/DL (0.55-1.30) Estimat Glomerular Filtration Rate > 60 mL/min (>60) Glucose Level 92 MG/DL (74-106) Calcium Level 9.1 MG/DL (8.5-10.1) Total Bilirubin 0.8 MG/DL (0.2-1.0) Aspartate Amino Transf (AST/SGOT) 50 U/L (15-37) H Alanine Aminotransferase (ALT/SGPT) 35 U/L (12-78) Alkaline Phosphatase 90 U/L (46-116) Total Protein 6.9 G/DL (6.4-8.2) Albumin 3.5 G/DL (3.4-5.0) Globulin 3.4 g/dL Albumin/Globulin Ratio 1.0 (1.0-2.7) HIV (1&2) Antibody Rapid Negative (NEGATIVE) Objective HEAD AND NECK: No JVD. LUNGS: Clear. CARDIOVASCULAR: Regular S1 and S2 and tachycardic. ABDOMEN: Soft. EXTREMITIES: No pitting edema. Carlos Duncan MD Jun 09, 2020 19:13
[2020-06-09] MEDS ORDERED: Miralax 17gm pkt ORAL SCH (21:00)
--- NOTE | 2020-06-09 23:26 | Psychiatric Progress Note ---
Psychiatry Progress Note Psychiatry Progress Note Allergies: Coded Allergies: IODINE (Verified Allergy, Unknown, 06/05/20) Objective Data Height (Feet): 5 Height (Inches): 9.00 Weight (Pounds): 171 General Appearance: no apparent distress Assessment/Plan Status: progressing Berhane Guzman MD Jun 09, 2020 23:26
--- NOTE | 2020-06-09 23:26 | Psychiatry Consultation ---
Psychiatry Consultation Psychiatry Consultation Chief Complaint: Abdominal Pain Allergies: Coded Allergies: IODINE (Verified Allergy, Unknown, 06/05/20) Medication History Scheduled Olanzapine* (Zyprexa*), 5 MG ORAL DAILY, (Reported) Quetiapine Fumarate* (Seroquel*), 200 MG ORAL DAILY, (Reported) Sertraline Hcl* (Zoloft*), 100 MG PO DAILY, (Reported) Objective Data Height (Feet): 5 Height (Inches): 9.00 Weight (Pounds): 171 Berhane Guzman MD Jun 09, 2020 23:26
--- NOTE | 2020-06-11 07:58 | Discharge Summary ---
Discharge Summary Discharge Summary _ DATE OF ADMISSION: 06/05/2020 DATE OF DISCHARGE: 06/09/2020 DISCHARGED BY: Dr. Thakur REASON FOR ADMISSION: 44 years old male with past medical history of alcoholic liver disease, cirrhosis, remote history of esophageal varices, status post banding about 15 years ago, stomach ulcer, presented with hematemesis and syncope. In emergency department patient was hemodynamically stable and in no acute distress. Patient was mildly tachycardic , which resolved after IV hydration. Laboratory work-up was largely unremarkable Laboratory work-up revealed no leukocytosis ,hemoglobin 16.6 ,hematocrit 48.1. Platelet count 234. Stable electrolytes and renal parameters. Glucose 86. Total bilirubin 0.8. AST 57, ALT 27, alkaline phosphatase 94. \ Lipase 444. Lactic acid 6.4, repeated 6.0. Troponin negative. EKG revealed sinus tachycardia, no acute ischemic changes . Albumin 4.1. Urinalysis revealed +3 protein ,+1 leukocyte esterase ,no pyuria. Chest x-ray revealed no acute cardiopulmonary pathology. In emergency department patient received IV fluids, Protonix, empiric Rocephin and Flagyl, and admitted to telemetry floor for further management. CONSULTANTS: sourcer Dr. Padilla GI specialist Dr. Holley coremaker pipe/oncologist Dr. Hardy surgery Dr. Jim Pain specialist Dr. Montilla psychiatrist Dr. Guzman [facility] COURSE: Patient admitted to telemetry floor. Patient initially provided with IV hydration and kept on clear liquid diet. Patient was on PPI. Folic acid and thiamine provided. Echocardiogram demonstrated preserved ejection fraction 65%. No evidence of wall motion abnormality. Repeated troponin was negative. EKG revealed no acute ischemic changes. Patient was ruled out for acute myocardial infarction. Syncopal episode was most likely due to GI bleeding , but also could be vagal. Patient remained hemodynamically stable. Abdominal ultrasound demonstrated dilated common bile ducts which in combination with a prominent pancreatic duct raise possibility of distal obstructive process such as choledocholithiasis or pancreatic head mass. Patient subsequently undergone CT scan of the abdomen pelvis. which showed evidence of prior cholecystectomy , dilated extrahepatic bile ducts without definite downstream obstructive lesion. Slight hepatic surface nodularity , possibly indicating early cirrhotic de la rosa es. Colonic diverticulosis without evidence of diverticulitis. Abdominal MRI revealed no definite downstream obstructive lesion , dilatation of the extrahepatic and to some extent the central intrahepatic duct , possibly related to postcholecystectomy state. Early cirrhotic changes. AST initially trended up , then started to trend down ; ALT remained stable. Hepatitis panel was negative . HIV test was nonreactive. Hemoglobin and hematocrit were closely monitored with goal to keep hemoglobin above 7 ; remained at the baseline.. Surgeon closely followed. No need for acute surgical intervention at this time. Pain management was addressed as per pain specialist recommendation. Patient was counseled on abstinence from ETOH. Patient clinically stabilized and was ready for discharge home. FINAL DIAGNOSES: Syncope possibly due to GI bleeding Upper GI bleeding Liver cirrhosis ETOH abuse Dilated common bile ducts History of chronic pancreatitis due to heavy ETOH abuse Abdominal pain DISCHARGE MEDICATIONS: See Medication Reconciliation list. DISCHARGE INSTRUCTIONS: Patient was discharged home Follow-up with a primary care provider. Patient was counseled on abstinence from alcohol. I have been assigned to dictate discharge summary for this account. I was not involved in the patient's management. Jordyn Christian NP Jun 11, 2020 07:58
--- NOTE | 2020-06-11 10:59 | NUR ---
INSURANCE DC SUMMARY/INSTRUCTIONS FAXED TO [facility] T: [phone] F: [phone]
== END 2020-06-09 16:00 | disposition home or self-care (01) | DRG 242 ==
LOC: EMR 08:30 → 2E 09:08 → EDBEDREQ 18:08 → 2E 23:13
DX: I85.01 Esophageal varices with bleeding (principal); K70.30 Alcoholic cirrhosis of liver without ascites; F10.10 Alcohol abuse, uncomplicated; R55 Syncope and collapse; F19.11 Other psychoactive substance abuse, in remission; Z87.891 Personal history of nicotine dependence; Z88.8 Allergy status to other drugs, medicaments and biological substances; Z90.49 Acquired absence of other specified parts of digestive tract
CPT/HCPCS: 36415; 71045; 74176; 74181; 76700; 80053; 81003; 82140; 82150; 82248; 83605; 83690; 84484; 85025; 85610; 85730; 86703; 86705; 86709; 86803; 86850; 86900; 86901; 87340; 93005; 93306; 96361; 96365; 96367; 96375; 96376; 99285; J2405; J7030

== ENCOUNTER 2020-08-07 21:47 | Emergency (ER) | payer OTHER ==
[~2020-08-07] VITALS: Ht 180.3 cm; Wt 77.1 kg
[~2020-08-07 21:47] MED LIST: QUETIAPINE FUM200 MG ORAL; SERTRALINE HCL100 MG PO; ZYPREXA5 MG ORAL
--- NOTE | 2020-08-07 23:00 | NUR ---
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
--- NOTE | 2020-08-07 23:04 | Emergency Room Report ---
History of Present Illness General Chief Complaint: Abdominal Pain Source: Patient (Kulwinder Villegas MD) Present Illness HPI Disclaimer: Please note that this report is being documented using [employer] technology. This can lead to erroneous entry secondary to incorrect interpr etation by the dictating instrument. HPI: 45-year-old male presents for evaluation of depression. Patient states he has a history of longstanding depression and typically followed with a Dr. Sullivan in [place] who is prescribing him Seroquel, Zoloft, Remeron, Zyprexa. Patient stopped taking his medication 1 month ago. He does not give a specific reason. States has been feeling increasingly depressed, has no shalom out of life. Patient was hospitalized 2016 but ever since then has been doing well with outpatient therapy. Denies attempted self-harm. He is drinking daily approximately half a liter of vodka. He has a history of chronic pancreatitis as well. He reported some baseline abdominal pain that states has been present for multiple years. Denies vomiting or diarrhea. Denies fever or chills. Denies chest pain or palpitations. Patient has no plan to hurt himself and states he is not actively suicidal but is feeling more depressed. Patient recovered from COVID-19 in May. 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 EOMI. Cardiovascular: RRR. S1 and S2 normal. No murmur appreciated Resp: Normal work of breathing. No cough, wheezing or crackles appreciated Abdomen: Abdomen is soft, nondistended. Nontender Skin: Intact. No abrasions, laceration or rash over the exposed skin MSK: Normal tone and bulk. Moving all extremities. No obvious deformity. Neuro: Awake and alert. Mentating appropriately. (Kulwinder Villegas MD) Medical Decision Making Diagnostic Impression: Primary Impression: Depression Additional Impressions: Nonadherence to medication Alcohol dependence Alcohol withdrawal ER Course 45-year-old male presents for evaluation of depression. It is a long-term issue for the patient is been drinking heavily and not taking his medication. He has not seen a psychiatrist in [place] from some time. He also has another psychiatrist in [place] since he is now working down in the [place] area. He has not reached out to without psychiatrist because he states he felt "embar rassed" about his depression. Offered to give patient a dose of his home medications but he declined stating "I do not like to take pills." 0120: Labs unremarkable. Patient sleeping comfortably on reevaluation. 0315: Patient awake and ambulated to the bathroom. Discussed his labs. He feels reassured. Again offered his home medications but he again declined. He would like to speak with her psychiatrist in the morning. Laboratory Tests Test 08/08/20 00:25 White Blood Count 7.4 K/UL (4.8-10.8) Red Blood Count 3.86 M/UL (4.70-6.10) L Hemoglobin 12.7 G/DL (14.2-18.0) L Hematocrit 37.4 % (42.0-52.0) L Mean Corpuscular Volume 97 FL (80-99) Mean Corpuscular Hemoglobin 32.8 PG (27.0-31.0) H Mean Corpuscular Hemoglobin Concent 33.8 G/DL (32.0-36.0) Red Cell Distribution Width 13.6 % (11.6-14.8) Platelet Count 180 K/UL (150-450) Mean Platelet Volume 6.5 FL (6.5-10.1) Neutrophils (%) (Auto) 58.3 % (45.0-75.0) Lymphocytes (%) (Auto) 20.1 % (20.0-45.0) Monocytes (%) (Auto) 8.8 % (1.0-10.0) Eosinophils (%) (Auto) 11.3 % (0.0-3.0) H Basophils (%) (Auto) 1.5 % (0.0-2.0) Sodium Level 148 MMOL/L (136-145) H Potassium Level 4.0 MMOL/L (3.5-5.1) Chloride Level 112 MMOL/L (98-107) H Carbon Dioxide Level 26 MMOL/L (21-32) Anion Gap 10 mmol/L (5-15) Blood Urea Nitrogen 10 mg/dL (7-18) Creatinine 1.2 MG/DL (0.55-1.30) Estimated Glomerular Filtration Rate > 60 mL/min (>60) Glucose Level 134 MG/DL (74-106) H Calcium Level 8.5 MG/DL (8.5-10.1) Total Bilirubin 0.3 MG/DL (0.2-1.0) Aspartate Amino Transferase (AST) 24 U/L (15-37) Alanine Aminotransferase (ALT) 27 U/L (12-78) Alkaline Phosphatase 103 U/L (46-116) Total Protein 6.4 G/DL (6.4-8.2) Albumin 3.3 G/DL (3.4-5.0) L Globulin 3.1 g/dL Albumin/Globulin Ratio 1.1 (1.0-2.7) Lipase 257 U/L (73-393) Salicylates Level 1.1 ug/mL (2.8-20) L Acetaminophen Level < 2 MCG/ML (10-30) L Serum Alcohol < 3 mg/dL (Kulwinder Villegas MD) ER Course Patient was endorsed me by Dr. Villegas. Patient had been medically cleared and had been seen by psychiatry. Patient had some reported suicidal thoughts. Patient was seen by Dr. Guzman. Patient appears to have some prior history of alcohol abuse. Patient will be voluntarily sent to psychiatric facility. Labs Test 08/08/20 00:25 08/08/20 07:05 White Blood Count 7.4 K/UL (4.8-10.8) Red Blood Count 3.86 M/UL (4.70-6.10) Hemoglobin 12.7 G/DL (14.2-18.0) Hematocrit 37.4 % (42.0-52.0) Mean Corpuscular Volume 97 FL (80-99) Mean Corpuscular Hemoglobin 32.8 PG (27.0-31.0) Mean Corpuscular Hemoglobin Concent 33.8 G/DL (32.0-36.0) Red Cell Distribution Width 13.6 % (11.6-14.8) Platelet Count 180 K/UL (150-450) Mean Platelet Volume 6.5 FL (6.5-10.1) Neutrophils (%) (Auto) 58.3 % (45.0-75.0) Lymphocytes (%) (Auto) 20.1 % (20.0-45.0) Monocytes (%) (Auto) 8.8 % (1.0-10.0) Eosinophils (%) (Auto) 11.3 % (0.0-3.0) Basophils (%) (Auto) 1.5 % (0.0-2.0) Sodium Level 148 MMOL/L (136-145) Potassium Level 4.0 MMOL/L (3.5-5.1) Chloride Level 112 MMOL/L (98-107) Carbon Dioxide Level 26 MMOL/L (21-32) Anion Gap 10 mmol/L (5-15) Blood Urea Nitrogen 10 mg/dL (7-18) Creatinine 1.2 MG/DL (0.55-1.30) Estimat Glomerular Filtration Rate > 60 mL/min (>60) Glucose Level 134 MG/DL (74-106) Calcium Level 8.5 MG/DL (8.5-10.1) Total Bilirubin 0.3 MG/DL (0.2-1.0) Aspartate Amino Transf (AST/SGOT) 24 U/L (15-37) Alanine Aminotransferase (ALT/SGPT) 27 U/L (12-78) Alkaline Phosphatase 103 U/L (46-116) Total Protein 6.4 G/DL (6.4-8.2) Albumin 3.3 G/DL (3.4-5.0) Globulin 3.1 g/dL Albumin/Globulin Ratio 1.1 (1.0-2.7) Lipase 257 U/L (73-393) Salicylates Level 1.1 ug/mL (2.8-20) Acetaminophen Level < 2 MCG/ML (10-30) Serum Alcohol < 3 mg/dL Urine Opiates Screen Negative (NEGATIVE) Urine Barbiturates Screen Negative (NEGATIVE) Phencyclidine (PCP) Screen Negative (NEGATIVE) Urine Amphetamines Screen Negative (NEGATIVE) Urine Benzodiazepines Screen Positive (NEGATIVE) Urine Cocaine Screen Negative (NEGATIVE) Urine Marijuana (THC) Screen Negative (NEGATIVE) (Kwasi Hatch MD) ER Course he was signed out to me pending reevaluation. Came in yesterday feeling depressed with SI. Not on a hold. Evaluated by psychiatry this morning. Still concerned about discharging patient at this time. I reevaluated patient. It appeared tremulous and shaky. Nausea and vomiting. Drinks every day. Last dr mejia was yesterday. Undergoing alcohol withdrawals. Requiring fluids and Ativan. Patient would also benefit from psychiatric evaluation. Not on 5150 hold. Patient agrees to admission Because of insurance patient will be transferred Laboratory Tests Test 08/08/20 00:25 08/08/20 07:05 White Blood Count 7.4 K/UL (4.8-10.8) Red Blood Count 3.86 M/UL (4.70-6.10) L Hemoglobin 12.7 G/DL (14.2-18.0) L Hematocrit 37.4 % (42.0-52.0) L Mean Corpuscular Volume 97 FL (80-99) Mean Corpuscular Hemoglobin 32.8 PG (27.0-31.0) H Mean Corpuscular Hemoglobin Concent 33.8 G/DL (32.0-36.0) Red Cell Distribution Width 13.6 % (11.6-14.8) Platelet Count 180 K/UL (150-450) Mean Platelet Volume 6.5 FL (6.5-10.1) Neutrophils (%) (Auto) 58.3 % (45.0-75.0) Lymphocytes (%) (Auto) 20.1 % (20.0-45.0) Monocytes (%) (Auto) 8.8 % (1.0-10.0) Eosinophils (%) (Auto) 11.3 % (0.0-3.0) H Basophils (%) (Auto) 1.5 % (0.0-2.0) Sodium Level 148 MMOL/L (136-145) H Potassium Level 4.0 MMOL/L (3.5-5.1) Chloride Level 112 MMOL/L (98-107) H Carbon Dioxide Level 26 MMOL/L (21-32) Anion Gap 10 mmol/L (5-15) Blood Urea Nitrogen 10 mg/dL (7-18) Creatinine 1.2 MG/DL (0.55-1.30) Estimat Glomerular Filtration Rate > 60 mL/min (>60) Glucose Level 134 MG/DL (74-106) H Calcium Level 8.5 MG/DL (8.5-10.1) Total Bilirubin 0.3 MG/DL (0.2-1.0) Aspartate Amino Transf (AST/SGOT) 24 U/L (15-37) Alanine Aminotransferase (ALT/SGPT) 27 U/L (12-78) Alkaline Phosphatase 103 U/L (46-116) Total Protein 6.4 G/DL (6.4-8.2) Albumin 3.3 G/DL (3.4-5.0) L Globulin 3.1 g/dL Albumin/Globulin Ratio 1.1 (1.0-2.7) Lipase 257 U/L (73-393) Salicylates Level 1.1 ug/mL (2.8-20) L Acetaminophen Level < 2 MCG/ML (10-30) L Serum Alcohol < 3 mg/dL Urine Opiates Screen Negative (NEGATIVE) Urine Barbiturates Screen Negative (NEGATIVE) Phencyclidine (PCP) Screen Negative (NEGATIVE) Urine Amphetamines Screen Negative (NEGATIVE) Urine Benzodiazepines Screen Positive (NEGATIVE) H Urine Cocaine Screen Negative (NEGATIVE) Urine Marijuana (THC) Screen Negative (NEGATIVE) (Kenneth Jeffries MD) Last Vital Signs Date Time Temp Pulse Resp B/P (MAP) Pulse Ox O2 Delivery O2 Flow Rate FiO2 08/07/20 22:25 98.4 107 20 117/77 (90) 96 Room Air (Kulwinder Villegas MD) Status: improved (Kwasi Hatch MD) Status: improved (Kenneth Jeffries MD) Disposition: SHORT-TERM HOSP Condition: Serious Referrals: [facility],REFERRING (PCP) Kulwinder Villegas MD Aug 07, 2020 23:04 Kwasi Hatch MD Aug 08, 2020 11:45 Kenneth Jeffries MD Aug 08, 2020 19:56
--- NOTE | 2020-08-08 00:30 | NUR ---
ED Nurse Note: Pt given sandwich, juice and chips, ate all and tolerated well, pt no longer comp-lains of abdominal pain or any pain, pt resting quietly in room, on continuous monitoring in sight of nurses at all times, no sitter available, will continue to closely monitor.
[2020-08-08 00:50] LABS: BASOPHILS % (AUTO) 1.5 % (0.0-2.0); EOSINOPHILS % (AUTO) 11.3 % (0.0-3.0); HEMATOCRIT 37.4 % (42.0-52.0); HEMOGLOBIN 12.7 G/DL (14.2-18.0); LYMPHOCYTES % (AUTO) 20.1 % (20.0-45.0); MEAN CORPUSCULAR VOLUME 97 FL (80-99); MONOCYTES % (AUTO) 8.8 % (1.0-10.0); NEUTROPHILS % (AUTO) 58.3 % (45.0-75.0); PLATELET COUNT 180 K/UL (150-450); RED BLOOD COUNT 3.86 M/UL (4.70-6.10); RED CELL DISTRIBUTION WIDTH 13.6 % (11.6-14.8); WHITE BLOOD COUNT 7.4 K/UL (4.8-10.8)
[2020-08-08 00:55] LABS: ANION GAP 10 mmol/L (5-15); BLOOD UREA NITROGEN 10 mg/dL (7-18); CALCIUM 8.5 MG/DL (8.5-10.1); CARBON DIOXIDE 26 MMOL/L (21-32); CHLORIDE 112 MMOL/L (98-107); CREATININE 1.2 MG/DL (0.55-1.30); SODIUM 148 MMOL/L (136-145)
[2020-08-08 00:58] LABS: ALANINE AMINOTRANSFERASE 27 U/L (12-78); ALBUMIN 3.3 G/DL (3.4-5.0); ALBUMIN/GLOBULIN RATIO 1.1 (1.0-2.7); ALKALINE PHOSPHATASE 103 U/L (46-116); ASPARTATE AMINO TRANSFERASE 24 U/L (15-37); BILIRUBIN,TOTAL 0.3 MG/DL (0.2-1.0)
--- NOTE | 2020-08-08 03:00 | NUR ---
ED Nurse Note: Pt continues to sleep, arouses easily to verbal stimuli, denies abdominal pain, chest pain or any pain, no sob or labored breathing noted, remains on suicidal precautions, no attempts made or changes, pt to see psychiatrist in am, pt remains calm and cooperative, assisted to bathroom again for urine sample, pt went but again forgot to get sample, pt given urinal for next time so specimen can be collected.
--- NOTE | 2020-08-08 05:00 | NUR ---
ED Nurse Note: Pt in room sleeping, no sob or labored breathing noted, pt arouses easily to verbal stimuli, denies any changes and states he remains suicidal, cotinues to have no plan, given urinal for urine collection, no sample recieved, pt is cooperative, no attempts made, will continue to closely monitor on suicidal precautions while pt waiting to be seen by psychiatrist.
--- NOTE | 2020-08-08 07:10 | NUR ---
ED Nurse Note: ordered breakfast for pt
--- NOTE | 2020-08-08 07:32 | NUR ---
ED Nurse Note: pt resting quietly with eyes closed in no noted distress.
--- NOTE | 2020-08-08 10:22 | NUR ---
ED Nurse Note: charge nurse pct psychiatrist to see pt
--- NOTE | 2020-08-08 11:30 | Psychiatry Consultation ---
Psychiatry Consultation Psychiatry Consultation Chief Complaint: Abdominal Pain History of Present Illness: 45-year-old male presents for evaluation of depression who was seen by this MD in May, the pt has hx of alcoholism. and stated that he is more depressed Patient states he has a history of longstanding depression and typically followed with a Dr. Sullivan in [place] who is prescribing him Seroquel, Zoloft, Remeron, Zyprexa. The pt stated that for the past 3 days he is more depressed. the pt stated that he is suicidal with intention to od. the pt has in somnia. In addition the pt has anxiety. Allergies: Coded Allergies: IODINE (Verified Allergy, Unknown, 06/05/20) Past Psychiatric History: the pt has hx of psych hospt and 5150 5250. Medical History: medically cleared. hx of gi bleeding. Substance Abuse History: alcohol x 10 years vodka mainly Medication History Scheduled Olanzapine* (Zyprexa*), 5 MG ORAL DAILY, (Reported) Quetiapine Fumarate* (Seroquel*), 200 MG ORAL DAILY, (Reported) Sertraline Hcl* (Zoloft*), 100 MG PO DAILY, (Reported) Patient History History Provided By: Patient, Medical Record, PMD Objective Data Height (Feet): 5 Height (Inches): 11.00 Weight (Pounds): 170 Appearance: no abnormalities noted, well groomed Behavior Mannerisms: good eye contact Affect: blunted Mood: depressed, anxious Speech: clear Thought Process: no abnormalities, logical Suicidal Ideation: suicidal ideation Assessment/Plan Problem List: (1) Alcohol dependence ICD Codes: F10.20 - Alcohol dependence, uncomplicated SNOMED: 04338493 (2) Major depression, recurrent ICD Codes: F33.9 - Major depressive disorder, recurrent, unspecified SNOMED: 97683449 Assessment/Plan: -transfer to [facility] -voluntary - staff Berhane Guzman MD Aug 08, 2020 11:30
--- NOTE | 2020-08-08 11:54 | NUR ---
ED Nurse Note: speaking with pt, he stated he doesn't know why he's so depressed. he used to be in the and has seen a lot of things that he would like to forget. 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
--- NOTE | 2020-08-08 11:59 | NUR ---
clinicals faxed to [facility] for eval
--- NOTE | 2020-08-08 12:30 | NUR ---
called [facility] will call back after review the chart.
--- NOTE | 2020-08-08 13:52 | NUR ---
unable to accept the patient due to no covid testing which has no covid new avilable
--- NOTE | 2020-08-08 13:55 | NUR ---
per psych facility at [facility] patient to have updated covid result for admission
--- NOTE | 2020-08-08 14:52 | NUR ---
ED Nurse Note: pt resting with eyes closed in no noted distress.
--- NOTE | 2020-08-08 15:52 | NUR ---
ED Nurse Note: ERMD contacting psychiatrist to see what plan is for pt.
[2020-08-08] MEDS ORDERED: LORazepam Inj 2mg/ml 1ml IV ONE (16:30)
[2020-08-08 16:57] VITALS: BP 119/85
--- NOTE | 2020-08-08 17:17 | NUR ---
ED Nurse Note: pt states that he doesn't feel like he is going through withdrawal. he will let staff know if he starts to.
--- NOTE | 2020-08-08 17:30 | NUR ---
PATIENT HAS BEEN ACCEPTED AT [facility]
--- NOTE | 2020-08-08 18:55 | NUR ---
ED Nurse Note: pct accepting facility and gave report to Anand bulk sugar handler. Pt will be going to bed [address] bed [address]. when pt arrives EMS needs to stop by admitting first before going to room.
--- NOTE | 2020-08-08 18:55 | NUR ---
ED Nurse Note: pt resting with eyes closed making snoring like sounds in no noted distress
--- NOTE | 2020-08-08 19:06 | NUR ---
ER DISCHARGE NOTE: Patient being transfered to [facility] per ERMD, pt is aox4, on room air, with stable vital signs. reported off to [facility].
== END 2020-08-08 19:12 | disposition short-term general hospital (02) ==
LOC: EMR 22:45
DX: F32.9 Major depressive disorder, single episode, unspecified (principal); F10.239 Alcohol dependence with withdrawal, unspecified; I11.9 Hypertensive heart disease without heart failure; Z91.14 Patient's other noncompliance with medication regimen; Y90.0 Blood alcohol level of less than 20 mg/100 ml; Z88.8 Allergy status to other drugs, medicaments and biological substances; Z91.5 Personal history of self-harm; Z86.16 Personal history of COVID-19
CPT/HCPCS: 36415; 80053; 80307; 83690; 85025; 96361; 96374; G0480; G0481; J7030; Z7502; 99285